=== PATIENT | female | born 1960 | race Caucasian/White ===

== ENCOUNTER 2020-02-20 17:12 | Emergency (ER) | payer MEDICARE, SELFPAY ==
[2020-02-20 17:51] VITALS: BP 144/90; PULSE 68; RESP 18; TEMP 36.8; O2SAT 95; BMI 33.8
--- NOTE | 2020-02-20 18:03 | ED_ITS ---
HPI - General Adult General: Chief complaint: General Medical Stated complaint: constipation/rectal presssure/pain Time Seen by Provider: 02/20/20 18:02 History of Present Illness: HPI narrative: Pt states she had been contipated for days and took a laxative and then she was able to go but whenever she strains something comes out of her rectum that is still attached and it hurts, she states she has to strain to urinate and she notices her rectoum come out then too. abd pain, no n/v/d Onset (ago): day(s) Location: abdomen Radiation: non-radiation Severity: moderate Quality: burning Pain Consistency: constant Relieving factors: none Exacerbating factors: none Associated symptoms: Deny chest pain, decreased appetite, dyspnea, fevers/chills, headache(s), nausea, rash, short of breath or vomiting Treatments prior to arrival: none Review of Systems General: Reports: 10 or more systems reviewed and unremarkable except in HPI and below Const: Denies: fever, chills or fatigue ENMT: Denies: throat pain Card: Denies: chest pain or swelling of feet/ankles Resp: Denies: shortness of breath or productive cough GI: Reports: constipation, rectal pain and rectal swelling; Denies: nausea, vomiting or diarrhea : Reports: difficulty urinating and urinary hesitancy Musc: Denies: back pain or extremity swelling Skin/Breast: Denies: rash Neuro: Denies: headache, numbness in extremities or weakness in extremities PFSH ED PFSH: Social History Smoking and tobacco status: current every day smoker cigarettes Packs smoked per day: 0.75 Years cigarettes smoked: 40 Physical Exam Const: COMMON NORMALS: no apparent distress and oriented x3 GENERAL APPEARANCE: cooperative; not in distress HENMT: COMMON NORMALS: normocephalic HEAD & SCALP: normal to inspection and normocephalic MOUTH: oral and palatal mucosa normal and lip normal THROAT: posterior oropharynx normal and tonsils normal Neck/C-Spine: COMMON NORMALS: full ROM, no lymphadenopathy, supple and no meningeal signs GENERAL: Yes normal visual inspection and Yes trachea midline Chest: COMMONS NORMALS: inspection of chest normal Resp: COMMON NORMALS: normal respiratory effort and clear to auscultation bilaterally EFFORT & INSPECTION: Yes able to speak in complete sentences and No respiratory distress AUSCULTATION: clear to auscultation bilaterally, no rales, no rhonchi and no wheezes Cardio: COMMON NORMALS: regular rate, regular rhythm, S1 normal heart sound, S2 normal heart sound and no murmurs RATE: regular rate RHYTHM: regular rhythm HEART SOUNDS: S1 normal and S2 normal PERIPHERAL PULSES: radial pulses present and dorsalis pedis pulses present GI: AUSCULTATION: Yes normoactive bowel sounds PALPATION: Yes tender Details: RLQ and other (supropubic) RECTAL EXAM: external hemorrhoid(s) (very small non thrombosed), No rectal prolapse and no fecal impaction : COMMON NORMALS: Yes no CVA tenderness BLADDER/KIDNEY EXAM: Yes no CVA tenderness Back/Pelvis: COMMON NORMALS: no CVA tenderness Extremity: COMMON NORMALS: normal to inspection, full ROM, normal capillary refill, no calf tenderness and no pedal edema Neuro: COMMON NORMALS: oriented x3, CN's II-XII intact bilaterally, moves all extremities and no focal motor deficits MENINGEAL SIGNS: Yes no meningeal signs Skin: COMMON NORMALS: no rashes or lesions noted GENERAL SKIN EXAM: no rashes or lesions noted Course Vital Signs: Vital signs: Vital Signs Temperature 98.3 F 02/20/20 17:51 Pulse Rate 69 02/20/20 19:29 Respiratory Rate 18 02/20/20 19:29 Blood Pressure 152/78 02/20/20 19:29 Pulse Oximetry 96 02/20/20 19:29 MDM - General Adult MDM Narrative: Medical decision making narrative: ct showed possible biliary sludge so I ordered us gallbladder which was neg, ast and alt are slightly elevated, She had no evidence of rectal prolapse by that is how it sounds by her history, I will refer her to general surgery as an outpt . I will send her home on colace. She is tolerating pos well here. Lab Data: Attestation: I reviewed the patient's lab results. Labs: Lab Results 02/20/20 02/20/20 02/20/20 Range/Units 19:05 19:37 19:37 WBC 9.1 (4.0-10.0) 10^3/ uL RBC 4.71 (4.1-5.3) 10^6/u L Hgb 15.0 (11.5-15.3) g/dL Hct 45.5 (37.0-47.0) % MCV 96.6 (81-99) fL MCH 31.8 (28.0-34.0) pg MCHC 33.0 (30.0-36.0) g/dL RDW 13.3 (12.1-15.1) % Plt Count 309 (130-400) 10^3/c mm MPV 10.2 (7.4-10.4) fL Neut % (Auto) 60.8 % Lymph % (Auto) 25.7 % [place] % (Auto) 11.3 % Eos % (Auto) 1.5 % Baso % (Auto) 0.5 % Neut # (Auto) 5.5 (1.8-7.7) 10^3/u L Lymph # (Auto) 2.3 (0.8-4.8) 10^3/u L [place] # (Auto) 1.0 H (0.2-0.9) 10^3/u L Eos # (Auto) 0.1 (0.0-0.8) 10^3/u L Baso # (Auto) 0.1 (0.0-0.1) 10^3/u L Nucleated RBC % (a uto) 0 % Nucleated RBCs # 0.0 /100WBC Sodium 135 L (136-145) mmol/L Potassium 3.7 (3.5-5.1) mmol/L Chloride 95 L (98-107) mmol/L Carbon Dioxide 29 (22-29) mmol/L Anion Gap 14.7 (5-19) BUN 7 (6-20) mg/dL Creatinine 1.0 H (0.5-0.9) mg/dL GFR Calculation 57.1 L (90-130) mL/min Glucose 86 (65-115) mg/dL Calculated Osmolal ity 275 L (285-295) mOsm/k g Calcium 9.1 (8.5-10.5) mg/dL Total Bilirubin 0.5 (0.15-1.2) mg/dL AST 84 H (0-32) U/L ALT 93 H (0-33) U/L Alkaline Phosphata se 90 (35-105) IU/L Total Protein 7.0 (6.6-8.7) g/dL Albumin 3.5 (3.5-5.2) g/dL Globulin 3.5 (1.3-4.6) g/dL Urine Color Straw (Yellow) Urine Appearance Clear (CLEAR) Urine pH 7 (5-7) Ur Specific Gravit y 1.000 L (1.005-1.030) Urine Protein Neg (Negative) Urine Glucose (UA) Norm (Normal) Urine Ketones Negative (Negative) Urine Blood Neg (Negative) Urine Nitrate Negative (Negative) Urine Bilirubin Neg (NEGATIVE) Urine Urobilinogen Norm (Negative) mg/dL Ur Leukocyte Dania ase Negative (Negative) Imaging Data^: CT Abd/Pel: Radiologist's impression: CT Scan Report Signed Patient: Tiarra Piper #: [id number] : 2Acct#:[id number] Age/Sex: 59 / FADM Date: 02/20/20 Loc: ERRoom/Bed: Attending Dr: Ordering Provider/Ordering MD: Maggy Acevedo DO Date of Service: 02/20/20 Procedure(s): CT abdomen pelvis w con* [id number] Accession Number(s): [id number] Report Number: [id number] PROCEDURE INFORMATION: Exam: CT Abdomen And Pelvis With Contrast Exam date and time: 02/20/2020 6:56 PM Age: 59 years old Clinical indication: Pain; Constipation; Other: Rectal; Prior surgery; Surgery type: RT hip; Additional info: Abd pain TECHNIQUE: Imaging protocol: Computed tomography of the abdomen and pelvis with intravenous contrast. Radiation optimization: All CT scans at this facility use at least one of these dose optimization techniques: automated exposure control; mA and/or kV adjustment per patient size (includes targeted exams where dose is matched to clinical indication); or iterative reconstruction. Contrast material: OMNI 300; Contrast volume: 95 ml; Contrast route: IV; COMPARISON: CT abdomen pelvis w con* [id number] 04/01/2019 2:00 PM RADIATION DOSE METRICS: Total DLP: 1315.97 mGy-cm FINDINGS: Liver: There is mild enlargement of the liver. . Liver measures 19 cm in height. There is no focal abnormality within the liver. Gallbladder and bile ducts: There is increased density in the dependent portions of the gallbladder which could represent gallbladder sludge or thick mild. Correlation with clinical findings and perhaps ultrasound is suggested. There is no gallbladder wall thickening or pericholecystic fluid . Pancreas: Prominent mid body of the pancreas is not significantly changed from 04/01/2019. No definite pancreatic mass is identified. Spleen: The spleen is normal. Adrenals: The adrenal glands are normal. Kidneys and ureters: The kidneys are normal. There is no evidence of hydronephrosis. There is no evidence of renal or ureteral calcifications. Stomach and bowel: Moderate diverticulosis is present in the distal colon. There is no evidence of colitis/diverticulitis. Appendix: A normal appendix is identified. Intraperitoneal space: Unremarkable. No free air. No significant fluid collection. Vasculature: Unremarkable. No abdominal aortic aneurysm. Lymph nodes: Unremarkable. No enlarged lymph nodes. Bladder: Unremarkable as visualized. Reproductive: Unremarkable as visualized. Bones/joints: There is right hip replacement. The metallic prosthesis causes some streak artifact in the pelvis. There is some cystic change in the left femoral neck and there is some sclerosis and remodeling of the left femoral head suggestive of osteonecrosis. This has progressed compared with 04/01/2019. The lumbar spine demonstrates marked degenerative changes at multiple levels. There is moderate lumbar scoliosis concave to the right. Soft tissues: Unremarkable. CT/CT abdomen pelvis w con* [id number] IMPRESSION: 1. Mild hepatomegaly 2. Avascular necrosis of the left femoral head. 3. Increased density within the gallbladder which could represent sludge. Correlation with clinical findings and perhaps ultrasound is suggested 4. Mildly prominent pancreas body not significantly changed Radiation Dose CTDIVOL = (mGy): DLP = 1315.97 (mGy-cm) Dictated By:James Grimes Signed By:Geovany Grimesigned Date/Time:02/20/201952 Discharge Plan Discharge Patient Disposition: Home, Self-Care Clinical Impression: Partial rectal prolapse, External hemorrhoid Condition: Stable Prescriptions: New Colace 100 mg capsule 100 mg PO BID Qty: 60 RF: 0 No Action Xarelto 20 mg tablet 20 mg PO DAILY 90 Days Qty: 90 RF: 3 amiodarone 200 mg tablet 200 mg PO DAILY Qty: 90 RF: 3 albuterol sulfate 90 mcg/actuation HFA aerosol inhaler 2 puff INHALATION Q6H PRN (Reason: shortness of breath or wheezing) Qty: 13.4 RF: 2 digoxin 125 mcg (0.125 mg) tablet 125 mcg PO DAILY 90 Days Qty: 90 RF: 3 furosemide 40 mg Tablet 40 mg PO BID RF: 0 spironolactone 25 mg Tablet 25 mg PO DAILY RF: 0 metoprolol tartrate 25 mg Tablet 25 mg PO BID RF: 0 Mucinex D 400 MG 400 mg PO BID RF: 0 hydrocodone-acetaminophen 10 MG 10 mg PO DAILY PRN (Reason: Breakthrough Pain) RF: 0 Tylenol Extra Strength 500 mg Tablet 500 mg PO Q6H PRN (Reason: Pain) RF: 0 Discharge Orders: Discharge Order (Routine); Ordered 02/20/20 Ordered By: Maggy Acevedo Referrals: Be Conley MD [Physician] - 1 week Filemon Sharma [Emergency Nurse] - 1-3 days Discharge Diet: Advance as tolerated and GI Soft Discharge Activity: Resume usual activity Patient Instructions: Hemorrhoids (ED) Activity Restrictions/Additional Instructions: no heavy lifting until cleared, no straining while on toilet, f/u with pcp 1-2 days, return if worse, sny problem, any change Discharge Date/Time: 02/20/20 22:23 Coding Level of Care Code ED Pipe Bending Machine Operator for Chg Fwd Exam Comprehensive
--- NOTE | 2020-02-20 18:53 | CTR_ITS ---
PROCEDURE INFORMATION: Exam: CT Abdomen And Pelvis With Contrast Exam date and time: 02/20/2020 6:56 PM Age: 59 years old Clinical indication: Pain; Constipation; Other: Rectal; Prior surgery; Surgery type: RT hip; Additional info: Abd pain TECHNIQUE: Imaging protocol: Computed tomography of the abdomen and pelvis with intravenous contrast. Radiation optimization: All CT scans at this facility use at least one of these dose optimization techniques: automated exposure control; mA and/or kV adjustment per patient size (includes targeted exams where dose is matched to clinical indication); or iterative reconstruction. Contrast material: OMNI 300; Contrast volume: 95 ml; Contrast route: IV; COMPARISON: CT abdomen pelvis w con* [id number] 04/01/2019 2:00 PM RADIATION DOSE METRICS: Total DLP: 1315.97 mGy-cm FINDINGS: Liver: There is mild enlargement of the liver. . Liver measures 19 cm in height. There is no focal abnormality within the liver. Gallbladder and bile ducts: There is increased density in the dependent portions of the gallbladder which could represent gallbladder sludge or thick mild. Correlation with clinical findings and perhaps ultrasound is suggested. There is no gallbladder wall thickening or pericholecystic fluid . Pancreas: Prominent mid body of the pancreas is not significantly changed from 04/01/2019. No definite pancreatic mass is identified. Spleen: The spleen is normal. Adrenals: The adrenal glands are normal. Kidneys and ureters: The kidneys are normal. There is no evidence of hydronephrosis. There is no evidence of renal or ureteral calcifications. Stomach and bowel: Moderate diverticulosis is present in the distal colon. There is no evidence of colitis/diverticulitis. Appendix: A normal appendix is identified. Intraperitoneal space: Unremarkable. No free air. No significant fluid collection. Vasculature: Unremarkable. No abdominal aortic aneurysm. Lymph nodes: Unremarkable. No enlarged lymph nodes. Bladder: Unremarkable as visualized. Reproductive: Unremarkable as visualized. Bones/joints: There is right hip replacement. The metallic prosthesis causes some streak artifact in the pelvis. There is some cystic change in the left femoral neck and there is some sclerosis and remodeling of the left femoral head suggestive of osteonecrosis. This has progressed compared with 04/01/2019. The lumbar spine demonstrates marked degenerative changes at multiple levels. There is moderate lumbar scoliosis concave to the right. Soft tissues: Unremarkable. CT/CT abdomen pelvis w con* [id number] IMPRESSION: 1. Mild hepatomegaly 2. Avascular necrosis of the left femoral head. 3. Increased density within the gallbladder which could represent sludge. Correlation with clinical findings and perhaps ultrasound is suggested 4. Mildly prominent pancreas body not significantly changed Radiation Dose CTDIVOL = (mGy): DLP = 1315.97 (mGy-cm)
[2020-02-20 19:15] LABS: Add Urine Microscopic? NO
[2020-02-20] MEDS: sodium chloride 0.9% 1,000 ML 999 ML IV (19:25)
[2020-02-20 19:29] VITALS: BP 152/78; PULSE 69; RESP 18; O2SAT 96
[2020-02-20 19:40] LABS: Bilirubin Urine Neg (NEGATIVE); Blood Urine Neg (Negative); Glucose Urine UA Norm (Normal); Ketones Urine Negative (Negative); Leukocyte Esterase Urine Negative (Negative); Nitrate Urine Negative (Negative); Protein Urine Neg (Negative); Urine Appearance Clear (CLEAR); Urine Color Straw (Yellow); Urobilinogen Urine Norm (Negative); pH Urine 7 (5-7)
[2020-02-20 19:53] LABS: Basophils # 0.1 10^3/uL (0.0-0.1); Basophils % 0.5 %; Eosinophils # 0.1 10^3/uL (0.0-0.8); Eosinophils % 1.5 %; Hematocrit 45.5 % (37.0-47.0); Lymphocytes # 2.3 10^3/uL (0.8-4.8); Lymphocytes % 25.7 %; Mean Corpuscular Hemoglobin 31.8 pg (28.0-34.0); Mean Corpuscular Volume 96.6 fL (81-99); Mean Platelet Volume 10.2 fL (7.4-10.4); Monocytes % 11.3 %; Neutrophils # 5.5 10^3/uL (1.8-7.7); Neutrophils % 60.8 %; Nucleated Red Blood Cells % 0 %; Platelet Count 309 10^3/cmm (130-400); Red Blood Count 4.71 10^6/uL (4.1-5.3); Red Cell Distribution Width 13.3 % (12.1-15.1); White Blood Count 9.1 10^3/uL (4.0-10.0)
[2020-02-20 20:21] LABS: Alanine Aminotransferase 93 U/L (0-33); Albumin Level 3.5 g/dL (3.5-5.2); Alkaline Phosphatase 90 IU/L (35-105); Anion Gap 14.7 (5-19); Aspartate Amino Transferase 84 U/L (0-32); Blood Urea Nitrogen 7 mg/dL (6-20); Calcium 9.1 mg/dL (8.5-10.5); Carbon Dioxide 29 mmol/L (22-29); Chloride 95 mmol/L (98-107); Globulin 3.5 g/dL (1.3-4.6); Glomerular Filtration Rate 57.1 mL/min (90-130); Glucose 86 mg/dL (65-115); Osmolality Calculated 275 mOsm/kg (285-295); Potassium 3.7 mmol/L (3.5-5.1); Sodium 135 mmol/L (136-145); Total Bilirubin 0.5 mg/dL (0.15-1.2)
--- NOTE | 2020-02-20 20:25 | US_ITS ---
WS: [id number] RIGHT UPPER QUADRANT ULTRASOUND HISTORY: Abnormal pancreas. Abnormal gallbladder. COMPARISON: 02/20/2020 CT. Prior ultrasound 03/15/2019. Liver: 19.3 cm in length. Liver slightly enlarged. No mass or bile duct dilatation. Gallbladder: Normally distended gallbladder with no stones or wall thickening. CBD: 0.4 cm Pancreas: Again noted is mild fullness in the mid body which is unchanged. Right kidney: 11.2 cm in length. Normal echogenicity with no mass or hydronephrosis. Aorta and IVC: Unremarkable. No ascites. US/US gall bladder [id number] IMPRESSION: 1. Normal gallbladder. 2. Mild hepatomegaly. 3. Mild fullness in the pancreatic mid body. Not changed since 04/01/2019.
--- NOTE | 2020-02-21 10:59 | DCPLANNER ---
manager application development had message to schedule a follow up appointment for patient with general surgery. manager application development called [facility], spoke with Cathleen, gave clinic patients information. manager application development was told that patients information would be given to Courtney and an appointment would be scheduled. Clinic will call patient with appointment information.
--- NOTE | 2020-02-27 13:36 | DCPLANNER ---
Patient has a follow up appointment scheduled for Friday, February 28, [address] at 11:[address] Conley. Clinic will call patient with appointment information.
--- NOTE | 2020-03-11 15:03 | DCPLANNER ---
Patients appointment scheduled for 02.28.20 with [facility], was cancelled.
== END 2020-02-20 22:23 | disposition home or self-care (01) ==
PROVIDERS: Emergency Provider Emergency Medicine
DX: K62.3 Rectal prolapse (principal); K64.4 Residual hemorrhoidal skin tags; F17.210 Nicotine dependence, cigarettes, uncomplicated
CPT/HCPCS: 12345; 36415; 74177; 76705; 80053; 81003; 85025; 96360; 96361; 99283; J7030; Q9967

== ENCOUNTER 2020-02-23 19:13 | Emergency (ER) | payer MEDICARE, SELFPAY ==
[2020-02-23 19:18] VITALS: BP 150/88; PULSE 94; RESP 16; TEMP 36.9; O2SAT 96; BMI 33.8
--- NOTE | 2020-02-23 19:37 | ED_ITS ---
HPI - General Adult General: Chief complaint: General Medical Stated complaint: Constipation/Rectal Bleed Time Seen by Provider: 02/23/20 19:35 Source: patient and EMS Mode of arrival: EMS Limitations: no limitations History of Present Illness: HPI narrative: 59-year-old female states she has had constipation for over a week. She states she has been trying stool softeners along with MiraLAX with no relief. She states she try to give her self an enema today and had bleeding which concerned her. Patient is since stopped bleeding but still has not had a bowel movement. States she has pressure in the rectum and pain in her rectum. Associated symptoms: Deny chest pain, dyspnea, headache(s) or rash Review of Systems Const: Denies: fever, chills, body aches or change in appetite Eyes: Denies: blurry vision or eye discomfort ENMT: Denies: throat pain or dental pain Card: Denies: chest pain Resp: Denies: shortness of breath GI: Reports: constipation : Denies: painful urination Musc: Denies: neck pain or back pain Skin/Breast: Denies: rash Neuro: Denies: headache Psych: Denies: depression [place]/Lymph: Denies: easy bruising All/Imm: Denies: hives PFSH ED PFSH: Social History Smoking and tobacco status: current every day smoker cigarettes Packs smoked per day: 0.75 Years cigarettes smoked: 40 Physical Exam Const: COMMON NORMALS: no apparent distress, oriented x3 and healthy appearing HENMT: COMMON NORMALS: normocephalic and head/scalp atraumatic HEAD & SCALP: normocephalic and atraumatic Eye: COMMON NORMALS: PERRL and EOMs intact bilaterally PUPIL: Yes PERRL Neck/C-Spine: COMMON NORMALS: full ROM and supple Chest: COMMONS NORMALS: inspection of chest normal and palpation of chest normal Resp: COMMON NORMALS: normal respiratory effort, no retractions, no use of accessory muscles and clear to auscultation bilaterally AUSCULTATION: clear to auscultation bilaterally Cardio: COMMON NORMALS: regular rate, regular rhythm and no murmurs RATE: regular rate RHYTHM: regular rhythm GI: COMMON NORMALS: normal to inspection, nondistended, normoactive bowel sounds, soft to palpation, non-tender and no masses PALPATION: Yes soft OTHER: Rectal exam shows no blood patient does have a impaction that is too deep to remove Extremity: COMMON NORMALS: normal to inspection and full ROM Neuro: COMMON NORMALS: oriented x3, moves all extremities and no focal motor deficits Psych: COMMON NORMALS: mental status grossly normal, thought process normal and cooperative THOUGHT PROCESS: normal thought process Skin: COMMON NORMALS: no rashes or lesions noted and no wounds GENERAL SKIN EXAM: no rashes or lesions noted Course Vital Signs: Vital signs: Vital Signs Temperature 98.4 F 02/23/20 19:18 Pulse Rate 94 02/23/20 19:18 Respiratory Rate 16 02/23/20 19:18 Blood Pressure 150/88 02/23/20 19:18 Pulse Oximetry 96 02/23/20 19:18 MDM - General Adult MDM Narrative: Medical decision making narrative: Patient presents with constipation. She has no GI bleeding here and likely had a small fissure during her enema. Patient given lactulose here and is to take MiraLAX at home. Manual disimpaction was performed and removed most of the constipation. Patient has no signs obstruction. Patient is stable for discharge and return if worsening. Lab Data: Labs: Lab Results 02/23/20 02/23/20 02/23/20 Range/Units 19:45 19:45 19:45 WBC 10.0 (4.0-10.0) 10^3/ uL RBC 4.78 (4.1-5.3) 10^6/u L Hgb 15.3 (11.5-15.3) g/dL Hct 46.9 (37.0-47.0) % MCV 98.1 (81-99) fL MCH 32.0 (28.0-34.0) pg MCHC 32.6 (30.0-36.0) g/dL RDW 13.5 (12.1-15.1) % Plt Count 291 (130-400) 10^3/c mm MPV 10.2 (7.4-10.4) fL Neut % (Auto) 70.9 % Lymph % (Auto) 15.8 % [place] % (Auto) 9.8 % Eos % (Auto) 2.7 % Baso % (Auto) 0.6 % Neut # (Auto) 7.1 (1.8-7.7) 10^3/u L Lymph # (Auto) 1.6 (0.8-4.8) 10^3/u L [place] # (Auto) 1.0 H (0.2-0.9) 10^3/u L Eos # (Auto) 0.3 (0.0-0.8) 10^3/u L Baso # (Auto) 0.1 (0.0-0.1) 10^3/u L Nucleated RBC % (a uto) 0 % Nucleated RBCs # 0.0 /100WBC PT 21.50 H (10.5-13.3) SECO NDS INR 1.79 H (0.8-1.2) Sodium 137 (136-145) mmol/L Potassium 3.7 (3.5-5.1) mmol/L Chloride 97 L (98-107) mmol/L Carbon Dioxide 26 (22-29) mmol/L Anion Gap 17.7 (5-19) BUN 7 (6-20) mg/dL Creatinine 1.1 H (0.5-0.9) mg/dL GFR Calculation 51.2 L (90-130) mL/min Glucose 99 (65-115) mg/dL Calculated Osmolal ity 280 L (285-295) mOsm/k g Calcium 9.1 (8.5-10.5) mg/dL Imaging Data^: KUB: Attestation: I personally reviewed and interpreted this imaging study as follows: My impression: constipated Discharge Plan Discharge Patient Disposition: Home, Self-Care Clinical Impression: Constipation Qualifiers: Constipation type: unspecified constipation type Qualified Code(s): K59.00 - Constipation, unspecified Condition: Stable Prescriptions: New Miralax 17 gram/dose powder 17 gm PO DAILY PRN (Reason: constipation) Qty: 119 RF: 0 No Action Xarelto 20 mg tablet 20 mg PO DAILY 90 Days Qty: 90 RF: 3 amiodarone 200 mg tablet 200 mg PO DAILY Qty: 90 RF: 3 albuterol sulfate 90 mcg/actuation HFA aerosol inhaler 2 puff INHALATION Q6H PRN (Reason: shortness of breath or wheezing) Qty: 13.4 RF: 2 digoxin 125 mcg (0.125 mg) tablet 125 mcg PO DAILY 90 Days Qty: 90 RF: 3 furosemide 40 mg Tablet 40 mg PO BID RF: 0 spironolactone 25 mg Tablet 25 mg PO DAILY RF: 0 metoprolol tartrate 25 mg Tablet 25 mg PO BID RF: 0 Mucinex D 400 MG 400 mg PO BID RF: 0 hydrocodone-acetaminophen 10 MG 10 mg PO DAILY PRN (Reason: Breakthrough Pain) RF: 0 acetaminophen [Tylenol Extra Strength] 500 mg Tablet 500 mg PO Q6H PRN (Reason: Pain) RF: 0 docusate sodium [Colace] 100 mg capsule 100 mg PO BID Qty: 60 RF: 0 Discharge Orders: Discharge Order (Routine); Ordered 02/23/20 Ordered By: Anni Larsen Discharge Diet: Advance as tolerated Discharge Activity: Resume usual activity Patient Instructions: Constipation (ED) Discharge Date/Time: 02/23/20 23:13 Coding Level of Care Code ED Fast Food Restaurant Manager for Carol Fwjeremy Exam Comprehensive
[2020-02-23] MEDS: lactulose oral liq 20 gm/30 mL UDC 30 GM PO (19:49)
[2020-02-23 19:51] LABS: Basophils # 0.1 10^3/uL (0.0-0.1); Basophils % 0.6 %; Eosinophils # 0.3 10^3/uL (0.0-0.8); Eosinophils % 2.7 %; Hematocrit 46.9 % (37.0-47.0); Hemoglobin 15.3 g/dL (11.5-15.3); Lymphocytes # 1.6 10^3/uL (0.8-4.8); Lymphocytes % 15.8 %; Mean Corpuscular HGB Conc 32.6 g/dL (30.0-36.0); Mean Corpuscular Volume 98.1 fL (81-99); Mean Platelet Volume 10.2 fL (7.4-10.4); Monocytes % 9.8 %; Neutrophils # 7.1 10^3/uL (1.8-7.7); Neutrophils % 70.9 %; Nucleated Red Blood Cells % 0 %; Platelet Count 291 10^3/cmm (130-400); Red Blood Count 4.78 10^6/uL (4.1-5.3); Red Cell Distribution Width 13.5 % (12.1-15.1)
--- NOTE | 2020-02-23 19:58 | XR_ITS ---
WS: [id number] XR KUB [id number] REASON FOR EXAM: constipation FINDINGS: Scattered gas and fecal stasis throughout the colon are noted. Prosthesis replaces the righ t hip joint. There is scoliotic curve convex to the left. XR/XR KUB [id number] IMPRESSION: Nonspecific gas and fecal stasis.
[2020-02-23 20:00] LABS: INR 1.79 (0.8-1.2)
--- NOTE | 2020-02-23 20:04 | PC.NURSE ---
Pt able to tolerate PO meds without difficulties
[2020-02-23 20:09] LABS: Anion Gap 17.7 (5-19); Blood Urea Nitrogen 7 mg/dL (6-20); Calcium 9.1 mg/dL (8.5-10.5); Carbon Dioxide 26 mmol/L (22-29); Chloride 97 mmol/L (98-107); Glomerular Filtration Rate 51.2 mL/min (90-130); Glucose 99 mg/dL (65-115); Osmolality Calculated 280 mOsm/kg (285-295); Potassium 3.7 mmol/L (3.5-5.1); Sodium 137 mmol/L (136-145)
[2020-02-23] MEDS: polyethylene glycol 3350 Pkt 17 gm PO (20:57)
[2020-02-23 22:25] VITALS: BP 134/72; PULSE 102; RESP 18; O2SAT 97
--- NOTE | 2020-02-23 23:12 | PC.NURSE ---
I agree with this assessment
== END 2020-02-23 23:13 | disposition home or self-care (01) ==
PROVIDERS: Emergency Provider Emergency Medicine
DX: K59.00 Constipation, unspecified (principal); F17.210 Nicotine dependence, cigarettes, uncomplicated
CPT/HCPCS: 12345; 36415; 74018; 80048; 85025; 85610; 99281; 99283

== ENCOUNTER 2020-04-26 23:07 | Emergency (ER) | payer MEDICARE, SELFPAY ==
[2020-04-26 23:12] VITALS: BP 113/80; PULSE 122; RESP 19; TEMP 36.7; O2SAT 95; BMI 33.0
--- NOTE | 2020-04-26 23:41 | XR_ITS ---
WS: [id number] LEFT HIP HISTORY: pain COMPARISON: 08/28/2019 LEFT hip: No acute fracture or dislocation. Mild narrowing and sclerotic changes involving the LEFT h ip joint. Irregularity along the cortical surface of the hip and acetabulum. XR/XR hip LT 2-3V wo/w pel* [id number] IMPRESSION: 1. No hip fracture. 2. Mild osteoarthritis LEFT hip.
--- NOTE | 2020-04-26 23:48 | W.ED.GENADLT ---
HPI - General Adult General: Chief complaint: General Medical Stated complaint: hip pain Time Seen by Provider: 04/26/20 23:21 History of Present Illness: HPI narrative: Patient complaining of worsening left hip pain is been really bad this past week hurts to ambulate now pain extends down her left thigh is waiting for hip replacement surgery complaint: Left hip pain Onset (ago): week(s) Location: left and upper extremity Radiation: extremity Severity: severe Severity scale (1-10): 7 Quality: aching Pain Consistency: constant Relieving factors: rest Exacerbating factors: movement Associated symptoms: Reports no associated symptoms; Deny chest pain, dyspnea, headache(s), nausea, rash or vomiting Treatments prior to arrival: other (Meds) Review of Systems Const: Denies: fever(s), chills or body aches Eyes: Denies: change in vision or blurry vision ENMT: Denies: throat pain or nasal congestion Card: Denies: chest pain or dyspnea on exertion Resp: Denies: dyspnea, productive cough or non-productive cough GI: Denies: abdominal pain, nausea or vomiting Musc: Reports: joint pain and limited range of motion; Denies: extremity pain Skin/Breast: Denies: rash Neuro: Denies: headache(s) Psych: Denies: anxiety or depression Kwabena/Lymph: Denies: easy bruising PFSH ED PFSH: Medical History (Updated 04/22/20 @ 15:54 by Noemi Osman MD) Anticoagulation adequate with anticoagulant therapy Xarelto Atrial fibrillation and flutter Congestive heart failure COPD (chronic obstructive pulmonary disease) Tobacco abuse Social History Smoking and tobacco status: current every day smoker cigarettes Years cigarettes smoked: 40 Marital status: / Physical Exam Const: COMMON NORMALS: no acute distress, average body habitus and patient oriented x3 HENMT: COMMON NORMALS: normocephalic HEAD & SCALP: normal to inspection and normocephalic FACE & SINUS: normal facial exam Eye: COMMON NORMALS: conjunctivae normal GENERAL EYE: appearance normal, both eyes and all related structures CONJUNCTIVA: Yes conjunctivae normal Neck/C-Spine: COMMON NORMALS: no JVD Chest: COMMONS NORMALS: normal inspection of the chest Resp: COMMON NORMALS: normal respiratory effort and clear to auscultation bilaterally AUSCULTATION: clear to auscultation bilaterally Cardio: COMMON NORMALS: no JVD, regular rate and regular rhythm RATE: regular rate RHYTHM: regular rhythm GI: COMMON NORMALS: Normal to inspection, nondistended, normoactive bowel sounds present Extremity: COMMON NORMALS: normal to inspection NARRATIVE EXTREMITY EXAM: Pain left hip with range of motion and palpation Neuro: COMMON NORMALS: patient oriented x3 Course Vital Signs: Vital signs: Vital Signs Temperature 98.0 F 04/26/20 23:12 Pulse Rate 122 H 04/26/20 23:12 Respiratory Rate 19 H 04/26/20 23:12 Blood Pressure 113/80 04/26/20 23:12 Pulse Oximetry 95 04/26/20 23:12 Discharge Plan Discharge Prescriptions: No Action albuterol sulfate 90 mcg/actuation HFA aerosol inhaler 2 puff INHALATION Q6H PRN (Reason: shortness of breath or wheezing) Qty: 13.4 RF: 11 amiodarone 200 mg tablet 200 mg PO DAILY Qty: 90 RF: 3 digoxin 125 mcg (0.125 mg) tablet 125 mcg PO DAILY 90 Days Qty: 90 RF: 3 furosemide 40 mg tablet 40 mg PO BID Qty: 180 RF: 3 metoprolol tartrate 25 mg tablet 25 mg PO BID Qty: 180 RF: 3 Xarelto 20 mg tablet 20 mg PO DAILY 90 Days Qty: 90 RF: 3 spironolactone 25 mg tablet 25 mg PO DAILY 90 Days Qty: 90 RF: 3 Miralax 17 gram/dose powder 17 gm PO DAILY PRN (Reason: constipation) Qty: 119 RF: 0 Mucinex D 400 MG 400 mg PO BID RF: 0 hydrocodone-acetaminophen 10 MG 10 mg PO DAILY PRN (Reason: Breakthrough Pain) RF: 0 acetaminophen [Tylenol Extra Strength] 500 mg Tablet 500 mg PO Q6H PRN (Reason: Pain) RF: 0 docusate sodium [Colace] 100 mg capsule 100 mg PO BID Qty: 60 RF: 0 Coding Level of Care Code ED Sonar Subsystem Equipment Operator for Chg Fwd Exam Comprehensive
[2020-04-27 00:01] LABS: Basophils # 0.1 10^3/uL (0.0-0.1); Basophils % 0.5 %; Eosinophils # 0.1 10^3/uL (0.0-0.8); Eosinophils % 0.5 %; Hematocrit 43.2 % (37.0-47.0); Hemoglobin 14.5 g/dL (11.5-15.3); Lymphocytes # 1.9 10^3/uL (0.8-4.8); Lymphocytes % 14.9 %; Mean Corpuscular HGB Conc 33.6 g/dL (30.0-36.0); Mean Corpuscular Hemoglobin 32.2 pg (28.0-34.0); Mean Corpuscular Volume 95.8 fL (81-99); Mean Platelet Volume 9.7 fL (7.4-10.4); Monocytes # 1.4 10^3/uL (0.2-0.9); Monocytes % 11.1 %; Neutrophils # 9.4 10^3/uL (1.8-7.7); Neutrophils % 72.8 %; Nucleated Red Blood Cells % 0 %; Platelet Count 333 10^3/cmm (130-400); Red Blood Count 4.51 10^6/uL (4.1-5.3); Red Cell Distribution Width 14.5 % (12.1-15.1); White Blood Count 12.9 10^3/uL (4.0-10.0)
[2020-04-27] MEDS: methylPREDNISolone (DEPO) 80 MG/ML INJ 1 mL IM (00:09)
[2020-04-27 00:17] LABS: C Reactive Protein 51.1 mg/L (0.0-4.9)
[2020-04-27 00:18] VITALS: RESP 20
[2020-04-27] MEDS: ondansetron 4 MG Tablet 8 MG PO (00:18)
[2020-04-27] MEDS: morphine 4 mg/mL SDV 1 mL IM (00:18)
[2020-04-27 00:40] LABS: Erythrocyte Sedimentation Rate 37 mm/hr (0-15)
[2020-04-27 01:19] VITALS: BP 128/60; PULSE 93; RESP 19; O2SAT 95
== END 2020-04-27 01:23 | disposition home or self-care (01) ==
PROVIDERS: Emergency Provider Nurse Practitioner Family; PCP Family Medicine
DX: M25.552 Pain in left hip (principal); I48.91 Unspecified atrial fibrillation; I50.9 Heart failure, unspecified; J44.9 Chronic obstructive pulmonary disease, unspecified; F17.210 Nicotine dependence, cigarettes, uncomplicated
CPT/HCPCS: 12345; 73502; 85025; 85651; 86140; 96372; 99281; 99283; J1040; J2270; Q0162

== ENCOUNTER 2020-05-12 20:00 | Outpatient (CLI) | payer MEDICARE, SELFPAY | END 2020-05-12 20:01 | disposition home or self-care (01) | LOC: SLEEP 05-13 09:04 | PROVIDERS: PCP Family Medicine; Visit Provider Family Medicine | DX: G47.33 Obstructive sleep apnea (adult) (pediatric) (principal) | CPT/HCPCS: 95811 ==

== ENCOUNTER 2020-10-03 16:02 | Emergency (ER) | payer MEDICARE, SELFPAY ==
[2020-10-03 16:19] VITALS: BP 142/88; PULSE 73; RESP 14; TEMP 36.2; O2SAT 97; BMI 31.3
--- NOTE | 2020-10-03 16:24 | ED_ITS ---
HPI - Back Pain/Injury General: Chief Complaint: Back Pain/Injury Stated Complaint: SEVERE R UPPER BACK PAIN Time Seen by Provider: 10/03/20 16:19 Source: patient Mode of arrival: ambulatory Limitations: no limitations History of Present Illness: HPI Narrative: 60-year-old female states she has been having right upper back pain over the last 4 days. States it is a very sharp pain right over her rhomboid muscle. States it is much worse with deep breaths and anytime she moves her right arm. States been improved with Tylenol she took Tylenol before arrival and her pain currently is a 3 out of 10. Denies any cough or fever. Denies any chest pain. Associated symptoms: Deny abdominal pain, chills, dysuria, fever(s), nausea or vomiting Review of Systems Const: Denies: fever(s), chills, body aches or change in appetite Eyes: Denies: blurry vision or eye discomfort ENMT: Denies: throat pain or dental pain Card: Denies: chest pain Resp: Denies: dyspnea GI: Denies: abdominal pain, nausea, vomiting or diarrhea : Denies: dysuria Musc: Reports: back pain; Denies: neck pain Skin/Breast: Denies: rash Neuro: Denies: headache(s) Psych: Denies: depression Kwabena/Lymph: Denies: easy bruising All/Imm: Denies: urticaria PFSH ED PFSH: Medical History Anticoagulation adequate with anticoagulant therapy Xarelto Atrial fibrillation and flutter Congestive heart failure COPD (chronic obstructive pulmonary disease) Tobacco abuse Surgical History History of arthroplasty of right hip Social History Smoking and tobacco status: current every day smoker cigarettes Packs smoked per day: 0.5 Years cigarettes smoked: 40 Second hand smoke exposure: No Alcohol intake: never Lives independently: Yes Marital status: / Current occupational status: disabled History of recent travel: No Current gender identity: Female Physical Exam Const: COMMON NORMALS: no acute distress, patient oriented x3 and healthy appearing HENMT: COMMON NORMALS: normocephalic and atraumatic HEAD & SCALP: normocephalic and atraumatic Eye: COMMON NORMALS: Equal, round and reactive pupils present and EOMs intact bilaterally PUPIL: Yes Equal, round and reactive pupils present Neck/C-Spine: COMMON NORMALS: full ROM and supple Chest: COMMONS NORMALS: normal inspection of the chest and normal palpation of entire chest wall Resp: COMMON NORMALS: normal respiratory effort, No retractions, No use of accessory muscles and clear to auscultation bilaterally AUSCULTATION: clear to auscultation bilaterally Cardio: COMMON NORMALS: regular rate, regular rhythm and No murmurs present (Cardio) RATE: regular rate RHYTHM: regular rhythm GI: COMMON NORMALS: Normal to inspection, nondistended, normoactive bowel sounds present, Soft to palpation, non-tender and no masses PALPATION: Yes Soft to palpation Back/Pelvis: OTHER: Tender over right rhomboid muscle. No midline back tenderness Extremity: COMMON NORMALS: normal to inspection and full ROM Neuro: COMMON NORMALS: patient oriented x3, moves all extremities and no focal motor deficits Psych: COMMON NORMALS: mental status grossly normal, Normal thought process present and cooperative THOUGHT PROCESS: Normal thought process present Skin: COMMON NORMALS: no rashes or lesions noted and no wounds GENERAL SKIN EXAM: no rashes or lesions noted Course Vital Signs: Vital signs: Vital Signs Temperature 97.2 F L 10/03/20 16:19 Pulse Rate 73 10/03/20 16:19 Respiratory Rate 14 10/03/20 16:19 Blood Pressure 142/88 10/03/20 16:19 Pulse Oximetry 97 10/03/20 16:19 MDM - Back Pain/Injury MDM Narrative: Medical decision making narrative: Demetria presents here with back pain. She is point tender over the rhomboid muscle and likely has a rhomboid strain. She has no midline tenderness and x-ray of her chest is normal with no signs of pneumonia. She is stable for discharge will place her on muscle relaxants she is to follow-up with her PCP and return if worsening. She understands and agrees to plan. Discharge Plan Discharge Patient Disposition: Home Clinical Impression: Thoracic back pain Qualifiers: Chronicity: acute Back pain laterality: right Qualified Code(s): M54.6 - Pain in thoracic spine Condition: Stable Prescriptions: New methocarbamol [Robaxin-750] 750 mg tablet 750 mg PO Q6H Qty: 30 RF: 0 No Action albuterol sulfate 90 mcg/actuation HFA aerosol inhaler 2 puff INHALATION Q6H PRN (Reason: shortness of breath or wheezing) Qty: 13.4 RF: 11 amiodarone 200 mg tablet 200 mg PO DAILY Qty: 90 RF: 3 digoxin 125 mcg (0.125 mg) tablet 125 mcg PO DAILY 90 Days Qty: 90 RF: 3 furosemide 40 mg tablet 40 mg PO BID Qty: 180 RF: 3 Xarelto 20 mg tablet 20 mg PO DAILY 90 Days Qty: 90 RF: 3 spironolactone 25 mg tablet 25 mg PO DAILY 90 Days Qty: 90 RF: 3 hydrocodone-acetaminophen 10-325 mg tablet 1 tab PO TID PRN (Reason: pain) 10 Days Qty: 30 RF: 0 sulfamethoxazole-trimethoprim [Bactrim DS] 800-160 mg tablet 1 tab PO BID Qty: 20 RF: 0 metoprolol tartrate 50 mg tablet See Rx Instructions .ROUTE .COMPLEX Qty: 90 RF: 3 Miralax 17 gram/dose powder 17 gm PO DAILY PRN (Reason: constipation) Qty: 119 RF: 0 Mucinex D 400 MG 400 mg PO BID RF: 0 acetaminophen [Tylenol Extra Strength] 500 mg Tablet 500 mg PO Q6H PRN (Reason: Pain) RF: 0 docusate sodium [Colace] 100 mg capsule 100 mg PO BID Qty: 60 RF: 0 Discharge Orders: Discharge ED (Routine); Ordered 10/03/20 Ordered By: Anni Larsen Referrals: Noemi Osman MD [Primary Care Provider] - 1-3 days Discharge Diet: Advance as tolerated Discharge Activity: Resume usual activity Patient Instructions: Back Pain (ED) Coding Level of Care Code ED Global Security Architect for Chg Fwd Exam Comprehensive
--- NOTE | 2020-10-03 16:24 | XRR_ITS ---
PROCEDURE INFORMATION: Exam: XR Chest, 1 View Exam date and time: 10/03/2020 4:24 PM Age: 60 years old Clinical indication: Chest pain TECHNIQUE: Imaging protocol: XR of the chest Views: 1 view. COMPARISON: CR Chest 2 views* [id number] 07/16/2018 2:47 PM FINDINGS: Lungs: There is scarring at the left lung base. Pleural space: Unremarkable. No pleural effusion. No pneumothorax. Heart/Mediastinum: Unremarkable. No cardiomegaly. Bones/joints: Unremarkable. Soft tissues: COPD morphology of the chest. XR/XR chest 1V portable [id number] IMPRESSION: COPD morphology of the chest. No evidence for acute cardiopulmonary disease.
[2020-10-03 17:29] VITALS: BP 104/61; PULSE 71; O2SAT 97
== END 2020-10-03 17:30 | disposition home or self-care (01) ==
PROVIDERS: Emergency Provider Emergency Medicine; PCP Family Medicine
DX: M54.6 Pain in thoracic spine (principal); I50.9 Heart failure, unspecified; I48.91 Unspecified atrial fibrillation; J44.9 Chronic obstructive pulmonary disease, unspecified; F17.210 Nicotine dependence, cigarettes, uncomplicated
CPT/HCPCS: 12345; 71045; 99281; 99282

== ENCOUNTER → 2021-02-22 05:59 | Day surgery (SDC) | payer MEDICARE, SELFPAY ==
--- NOTE | 2021-02-22 06:22 | ECG_ITS ---
[facility] Test Date: 2021-02-22 Pat Name: Tiarra Piper Department: Room: Gender: Female Salmon Gillnet Vessel Operator: : 1960 Requested By: Sree Warren Order Number: [id number] Dave MD: Sree Warren M.D. Measurements Intervals [place] Rate: 64 P: 263 [place]: 197 QRS: 39 QRSD: 97 T: 22 QT: 413 QTc: 427 Interpretive Statements Atrial flutter with variable block MODERATE ST DEPRESSION [0.05+ mV ST DEPRESSION] Compared to ECG 07/16/2018 13:47:21 Ectopic atrial rhythm now present ST (T wave) deviation now present Sinus bradycardia no longer present First degree AV block no longer present Electronically Signed On 02-24-2021 8:06:02 CDT by Sree Warren M.D. [id number]
[2021-02-22 06:23] VITALS: BMI 30.7
[2021-02-22 06:24] VITALS: TEMP 36.7
[2021-02-22 06:27] VITALS: BP 126/73; PULSE 83; RESP 18; O2SAT 94
--- NOTE | 2021-02-22 06:54 | ANES.PREANE2 ---
Pre-Anesthetic Assessment Pre-Anesthetic Assessment: Height/Weight: Height 1.7 m Weight 88.904 kg Temp Pulse Resp BP Pulse Ox 98.0 F 83 18 126/73 94 02/22/21 06:24 02/22/21 06:27 02/22/21 06:27 02/22/21 06:27 02/22/21 06:27 Preop Diagnosis: atrial flutter Proposed Procedure: Operation Date: 02/22/21 07:00 Proposed Procedures p Cardioversion 76284 I48.91(Not Applicable) - Sree Warren M.D Was Beta Caprice taken within 24 hours: Yes Social: Social History: Tobacco Exam: Pre-Anes Outpt Exam: alert, oriented x 3, clear to auscultation bilaterally and regular rate & rhythm Airway: Submandibular: WNL Cervical ROM: WNL MP: 2 Dentition: Full History/ROS: No significant history except as noted and No significant complaints Pulmonary: Pulmonary: COPD and ARTEAGA CV/HEM: CV/HEM: Afib, Angina (Stable), CHF and HTN : : None reported Hepatic: Hepatic: None reported GI: GI: None reported Metabolic: Metabolic: None reported Neuropsych: Neuropsych: Anxiety Anesthetic Plan: ASA status: 3 Anesthesia: MAC Risk of > 500 ml blood loss (7ml/kg in children): No Meds/Allergies Current Medications: Current Medications Generic Name Dose Route Start Last Admin Trade Name Freq PRN Reason Stop Dose Admin Sodium Chloride 1,000 mls @ 30 ml s/hr 02/22/21 06:30 02/22/21 06:29 Sodium Chloride 0.9% IV 02/23/21 06:29 Not Given .Q24H MAEGAN PFSH Anesthesia PFSH: Medical History Anticoagulation adequate with anticoagulant therapy Xarelto Atrial fibrillation and flutter Congestive heart failure COPD (chronic obstructive pulmonary disease) Tobacco abuse Surgical History History of arthroplasty of right hip Social History Smoking and tobacco status: current every day smoker cigarettes Packs smoked per day: 0.5 Years cigarettes smoked: 40 Second hand smoke exposure: No Alcohol intake: never Lives independently: Yes Marital status: / Current occupational status: disabled History of recent travel: No Current gender identity: Female Data Anesthesia Cardiac Studies: No Data to Display
--- NOTE | 2021-02-22 07:27 | USCV_ITS ---
Tiarra Piper Age: 60 Gender: F : 1960 Exam Date: 02/22/2021 07:38 Ordering Phys: Sree Warren M.D ([email or web address]) Technologist: Bettye Adams Exam Location: [facility] [place] Indication: CHEST PAIN BP: 126 / 73 HR: 52 Rhythm: Atrial flutter Technical Quality: Adequate MEASUREMENTS (Male / Female) Normal Values 2D ECHO LV Diastolic Diameter PLAX 3.7 cm 4.2 - 5.9 / 3.9 - 5.3 cm LV Systolic Diameter PLAX 2.3 cm LV Chamber Size 3.4 cm IVS Diastolic Thickness 1.4 cm 0.6 - 1.0 / 0.6 - 0.9 cm IVS Systolic Thickness 1.1 cm LVPW Diastolic Thickness 1.2 cm 0.6 - 1.0 / 0.6 - 0.9 cm LVPW Systolic Thickness 1.2 cm RV Chamber Size 3.5 cm LVOT Diameter 2.0 cm LV Ejection Fraction 2D Teich 71.0 % LV Ejection Fraction MOD 2C 43.8 % LV Ejection Fraction 2C AL 46.3 % LA Diameter 3.1 cm LA Width 3.5 cm LA Height 4.4 cm RA Width 4.0 cm RA Height 4.5 cm Aorta at Sinotubular Diameter 2.8 cm M-MODE LV Diastolic Diameter MM 3.1 cm 4.2 - 5.9 / 3.9 - 5.3 cm LV Systolic Diameter MM 2.1 cm LV Ejection Fraction MM Teich 63.7 % IVS Diastolic Thickness MM 1.3 cm 0.6 - 1.0 / 0.6 - 0.9 cm IVS Systolic Thickness MM 1.3 cm LVPW Diastolic Thickness MM 1.2 cm 0.6 - 1.0 / 0.6 - 0.9 cm LVPW Systolic Thickness MM 1.3 cm Aortic Annulus Diameter 3.5 cm LA Ao Ratio MM 0.9 MV E Point Septal Separation 0.5 cm DOPPLER AV Peak Velocity 148.0 cm/s LVOT Peak Velocity 110.0 cm/s AV Area Cont Eq vti 2.7 cm squared AV Area Cont Eq pk 2.4 cm squared MV Area PHT 4.0 cm squared Mitral E to A Ratio 38.9 MV E' Velocity 50.5 cm/s Mitral E to MV E' Ratio 7.3 Mitral E to LV E' Lateral Ratio 7.3 Mitral E to LV E' Septal Ratio 7.2 TR Peak Velocity 137.2 cm/s TR Peak Gradient 7.5 mmHg TR Mean Velocity 92.3 cm/s TR Mean Gradient 4.0 mmHg TR Velocity Time Integral 30.9 cm TV Peak E Velocity 46.0 cm/s Right Atrial Pressure 3.0 mmHg Pulmonary Artery Systolic Pressu 10.5 mmHg PV Peak Velocity 53.0 cm/s RV Acceleration Time 0.2 s RV Ejection Time 0.4 s RV AcT/ET 0.4 FINDINGS Left Ventricle Normal left ventricular size. LV systolic function is normal with EF of 55-60%. No regional wall motion abnormalities. Diastolic function cannot be determined because of atrial fibrillation. Right Ventricle The right ventricle is normal in size and function. Right Atrium The right atrium is normal in size. Left Atrium The left atrium is normal in size. Mitral Valve Structurally normal mitral valve without significant stenosis or prolapse. There is trace mitral regurgitation. Aortic Valve Aortic valve is grossly normal without significant stenosis. There is no aortic regurgitation. Tricuspid Valve Structurally normal tricuspid valve without significant stenosis or regurgitation. Insufficient TR jet to calculate RVSP Pulmonic Valve Structurally normal pulmonic valve without significant stenosis. There is no pulmonic regurgitation. Pericardium Normal pericardium without effusion. Aorta Normal ascending aorta dimension. CONCLUSIONS LV systolic function is normal with EF of 55-60% Diastolic function cannot be determined because of atrial fibrillation. Trace mitral regurgitation No signficant changes noted compared to prior echocardiogram from 06/04/2018 Sree Warren MD (Electronically Signed) Final Date: 25 Feb 2021 12:30 S
--- NOTE | 2021-02-22 07:33 | PM.MISC ---
Miscellaneous Note Purpose of Documentation: Procedure cancellation Note: Patient was scheduled for cardioversion for atrial flutter. Patient's heart rate was in 80s in atrial flutter at time of check in but then dropped into 50's. We cancelled the procedure for today and will reschedule later as there is risk of causing significant bradycardia after cardioversion. Discussed with the patient, who is in agreement with the plan.
== END ==
LOC: CCL 06:06
PROVIDERS: PCP Family Medicine; Visit Provider Internal Medicine
DX: I48.92 Unspecified atrial flutter (principal); J44.9 Chronic obstructive pulmonary disease, unspecified; I48.91 Unspecified atrial fibrillation; I11.0 Hypertensive heart disease with heart failure; I50.9 Heart failure, unspecified; F41.9 Anxiety disorder, unspecified; Z79.01 Long term (current) use of anticoagulants; F17.210 Nicotine dependence, cigarettes, uncomplicated
CPT/HCPCS: 93005; 93306

== ENCOUNTER 2021-03-12 06:04 | Day surgery (SDC) | payer MEDICARE, SELFPAY ==
--- NOTE | 2021-03-12 06:06 | ECG_ITS ---
[facility] Test Date: 2021-03-12 Pat Name: Tiarra Piper Department: Room: Gender: Female Log Tumbler: : 1960 Requested By: Sree Warren Order Number: [id number] Reading MD: DIAN IVY Measurements Intervals [place] Rate: 64 P: [place]: QRS: -18 QRSD: 108 T: 10 QT: 420 QTc: 435 Interpretive Statements ATRIAL FLUTTER/TACHYCARDIA POSSIBLE ANTERIOR MYOCARDIAL INFARCTION [30 ms Q WAVE IN V3/V4, OR R < 0.2 mV IN V4], PROBABLY OLD MODERATE T-WAVE ABNORMALITY, CONSIDER INFERIOR ISCHEMIA [-0.1+ mV T WAVE IN II/aVF] Compared to ECG 02/22/2021 06:36:55 Myocardial infarct finding now present T-wave abnormality now present Possible ischemia now present ST (T wave) deviation no longer present Electronically Signed On 03-12-2021 21:23:23 CDT by DIAN IVY [id number]
--- NOTE | 2021-03-12 07:20 | P.MISC_ITS ---
Miscellaneous Note Purpose of Documentation: Cancellation of cardioversion Note: Patient was scheduled to undergo cardioversion today, however she was found to have normal sinus rhythm at presentation. She briefly went into atrial flutter thereafter and then converted spontaneously back to normal sinus rhythm. Electrical cardioversion is not going to benefit her as she is spontaneously converting back to NSR. We will increase dose of amiodarone to 400mg BID for 2 w eeks and see her back in office. As her heart rate is low, we will stop metoprolol at this time and she will monitor her heart rate at home. At outpatient visit we will determine medication stretegy based on if she stays in normal sinus rhythm.
--- NOTE | 2021-03-12 07:21 | ECG_ITS ---
[facility] Test Date: 2021-03-12 Pat Name: Tiarra Piper Department: Room: Gender: Female Tool Engineer: : 1960 Requested By: Sree Warren Order Number: [id number] Reading MD: DIAN IVY Measurements Intervals [place] Rate: 66 P: [place]: QRS: -11 QRSD: 92 T: 10 QT: 417 QTc: 438 Interpretive Statements ATRIAL FLUTTER/TACHYCARDIA POSSIBLE ANTERIOR MYOCARDIAL INFARCTION [30 ms Q WAVE IN V3/V4, OR R < 0.2 mV IN V4], OF INDETERMINATE AGE MODERATE T-WAVE ABNORMALITY, CONSIDER LATERAL ISCHEMIA [-0.1+ mV T WAVE IN I/aVL/V5/V6] MODERATE T-WAVE ABNORMALITY, CONSIDER INFERIOR ISCHEMIA [-0.1+ mV T WAVE IN II/aVF] Compared to ECG 03/12/2021 06:25:31 No significant changes Electronically Signed On 03-12-2021 21:19:54 CDT by DIAN IVY [id number]
--- NOTE | 2021-03-12 07:27 | PC.NURSE ---
Due to heart rate in the low 60s, the cardioversion has been canceled. Medication changes have been discussed and the patient verbalizes understanding. A repeat EKG has been ordered and the patient will then be sent home.
== END 2021-03-12 08:03 | disposition home or self-care (01) ==
PROVIDERS: PCP Family Medicine; Visit Provider Internal Medicine
DX: Z53.9 Procedure and treatment not carried out, unspecified reason (principal)
CPT/HCPCS: 93005

== ENCOUNTER → 2021-03-15 11:37 | Outpatient (BNVA) | payer MEDICARE, SELFPAY | PROVIDERS: PCP Family Medicine; Visit Provider Orthopaedic Surgery | DX: M25.551 Pain in right hip (principal); Z96.641 Presence of right artificial hip joint | CPT/HCPCS: 73502 ==

== ENCOUNTER → 2021-05-12 15:49 | Outpatient (BNVA) | payer MEDICARE, SELFPAY | PROVIDERS: PCP Family Medicine; Visit Provider Family Medicine | DX: I48.91 Unspecified atrial fibrillation (principal); I48.92 Unspecified atrial flutter; I50.9 Heart failure, unspecified; J44.9 Chronic obstructive pulmonary disease, unspecified; M25.552 Pain in left hip; G89.29 Other chronic pain | CPT/HCPCS: 80053; 80061; 84443; 85025 ==

== ENCOUNTER 2021-06-20 08:23 | Emergency (ER) | payer MEDICARE, SELFPAY ==
[2021-06-20 08:42] VITALS: BP 140/83; PULSE 69; RESP 18; TEMP 37.1; O2SAT 95; BMI 31.3
--- NOTE | 2021-06-20 08:54 | ED_ITS ---
HPI - Dental/Oral General: Chief complaint: Dental/Oral Stated complaint: TOOTH PAIN Time Seen by Provider: 06/20/21 08:32 History of Present Illness: HPI Narrative: Patient has swelling right upper molar times few days. He has a history of dental caries. Patient unable to afford dental care at this time. MD Complaint: tooth pain Teeth map: 1. Pain and swelling Onset (ago): week(s) Duration: constant Severity: moderate Context: history of dental caries Associated symptoms: Reports gum swelling; Denies fever(s) Treatment prior to arrival: none Review of Systems Const: Denies: fever(s), chills or body aches Eyes: Denies: change in vision or blurry vision ENMT: Reports: dental pain; Denies: throat pain or nasal congestion Card: Denies: chest pain or dyspnea on exertion Resp: Denies: dyspnea, productive cough or non-productive cough GI: Denies: abdominal pain, nausea or vomiting Musc: Denies: extremity pain Skin/Breast: Denies: rash Neuro: Denies: headache(s) Psych: Denies: anxiety or depression Kwabena/Lymph: Denies: easy bruising PFSH ED PFSH: Medical History Anticoagulation adequate with anticoagulant therapy Xarelto Atrial fibrillation and flutter Congestive heart failure COPD (chronic obstructive pulmonary disease) Tobacco abuse Surgical History History of arthroplasty of right hip Social History Smoking and tobacco status: current every day smoker cigarettes Packs smoked per day: 0.5 Years cigarettes smoked: 40 Second hand smoke exposure: No Alcohol intake: never Lives independently: Yes Marital status: / Current occupational status: disabled History of recent travel: No Current gender identity: Female Physical Exam Const: COMMON NORMALS: no acute distress GENERAL APPEARANCE: cooperative HENMT: COMMON NORMALS: normocephalic, TM's normal bilaterally and Normal external nose present HEAD & SCALP: normocephalic FACE & SINUS: normal facial exam NOSE: Normal external nose present TYMPANIC MEMBRANE: TM's normal bilaterally MOUTH: Abnormal oral and palatal mucosa present erythematous (Right upper aspect) TEETH & GINGIVA: Yes caries (Right #2 tooth) THROAT: posterior oropharynx normal OTHER: No lymphadenopathy noted but has tenderness in the right jaw. Able to speak in complete sentences without apparent difficulty. Has swelling to the gum surrounding tooth no obv ious abscess noted. Neck/C-Spine: CERVICAL SPINE: Yes cervical ROM normal Lymph: LYMPHATIC: no lymphadenopathy noted Course Vital Signs: Vital signs: Vital Signs Temperature 98.7 F 06/20/21 08:42 Pulse Rate 69 06/20/21 08:42 Respiratory Rate 18 06/20/21 08:42 Blood Pressure 140/83 06/20/21 08:42 Pulse Oximetry 95 06/20/21 08:42 Discharge Plan Discharge Patient Disposition: Home Clinical Impression: Dental abscess Condition: Stable Prescriptions: New clindamycin HCl 300 mg capsule 300 mg PO Q8H 7 Days Qty: 21 RF: 0 No Action Xarelto 20 mg tablet 20 mg PO DAILY 90 Days Qty: 90 RF: 3 spironolactone 25 mg tablet 25 mg PO DAILY Qty: 90 RF: 3 digoxin 125 mcg (0.125 mg) tablet 125 mcg PO DAILY 90 Days Qty: 90 RF: 3 furosemide 40 mg tablet 40 mg PO BID Qty: 180 RF: 3 albuterol sulfate 90 mcg/actuation HFA aerosol inhaler 2 puff INHALATION Q6H PRN (Reason: shortness of breath or wheezing) Qty: 13.4 RF: 11 metoprolol tartrate 50 mg tablet 25 mg PO BID Qty: 90 RF: 3 hydrocodone-acetaminophen 10-325 mg tablet 1 tab PO Q8H PRN (Reason: pain) 10 Days Qty: 30 RF: 0 amiodarone 200 mg tablet 400 mg PO BID Qty: 90 RF: 3 Mucinex D 400 MG 400 mg PO BID RF: 0 acetaminophen [Tylenol Extra Strength] 500 mg Tablet 500 mg PO Q6H PRN (Reason: Pain) RF: 0 Discharge Orders: Discharge ED (Routine); Ordered 06/20/21 Ordered By: Luke Trivedi Referrals: Noemi Osman MD [Primary Care Provider] - Discharge Diet: Usual diet Discharge Activity: Resume usual activity Patient Instructions: Dental Abscess (ED) Activity Restrictions/Additional Instructions: Follow-up with medical provider as directed. Take medications as prescribed. Return to the ER or your medical provider if condition worsens. Please read and understand discharge instructions. If any questions ask please. Follow-up with a dentist as soon as possible. Can access services at [facility] in [facility] to see if they can pull your free of charge. Coding Level of Care Code ED Paper Machine Supervisor for Carol Phelps
[2021-06-20] MEDS: cefTRIAXone 1,000 MG in lidocaine 1% 2.1 ML 2.1 MG IM (09:12)
[2021-06-20 09:20] VITALS: BP 125/69; PULSE 64; O2SAT 91
== END 2021-06-20 09:26 | disposition home or self-care (01) ==
PROVIDERS: Emergency Provider Nurse Practitioner Family; PCP Family Medicine
DX: K04.7 Periapical abscess without sinus (principal); I48.91 Unspecified atrial fibrillation; I50.9 Heart failure, unspecified; J44.9 Chronic obstructive pulmonary disease, unspecified; Z79.01 Long term (current) use of anticoagulants; F17.210 Nicotine dependence, cigarettes, uncomplicated
CPT/HCPCS: 96372; 99283; J0696

== ENCOUNTER 2021-09-26 12:06 | Emergency (ER) | payer MEDICARE, SELFPAY ==
[2021-09-26 12:16] VITALS: BP 158/85; PULSE 85; RESP 16; TEMP 36.4; O2SAT 95
--- NOTE | 2021-09-26 12:29 | XRR_ITS ---
PROCEDURE INFORMATION: Exam: XR Cervical Spine Exam date and time: 09/26/2021 12:29 PM Age: 61 years old Clinical indication: Neck pain TECHNIQUE: Imaging protocol: XR of the cervical spine. Views: 2 or 3 views. COMPARISON: CR XR chest 1V portable [id number] 10/03/2020 4:27 PM FINDINGS: Bones/joints: Alignment is normal. posterior vertebral line and the spinal laminar line normal. odontoid process normal. no fracture. Mild degenerative disc disease most pronounced C5-C6 Soft tissues: Unremarkable. XR/XR cervical spine 3V* [id number] IMPRESSION: Mild degenerative disc disease Radiation Dose CTDIVOL = (mGy): DLP = (mGy-cm)
--- NOTE | 2021-09-26 12:30 | ED_ITS ---
HPI - Back Pain/Injury General: Chief Complaint: Back Pain/Injury Stated Complaint: R SHOULDER/BACK PAIN, R ARM NUMBNESS Time Seen by Provider: 09/26/21 12:20 Source: patient Mode of arrival: ambulatory Limitations: no limitations History of Present Illness: HPI Narrative: Diffuse upper back/neck pain. Difficulty getting dressed or performing ADLs No OTC treatments attempted prior to arrival. MD elicited complaint: back pain Onset (ago): week(s) (1) Timing: constant and progressively worsening Severity: moderate Similar Symptoms Previously: Yes (History of similar occurance 1 year ago.) Quality: dull and spasming Location: right upper back Exacerbating factors: movement and lifting Relieving factors: sitting upright and other (Heat) Context: other (Progressively worsened over the week, no known injury.) Associated symptoms: Reports no associated symptoms Treatments prior to arrival: heat therapy Work related injury: No Review of Systems General: Reports: 10 or more systems reviewed and unremarkable except in HPI and below Musc: Reports: back pain and limited range of motion PFSH ED PFSH: Medical History Anticoagulation adequate with anticoagulant therapy Xarelto Atrial fibrillation and flutter Congestive heart failure COPD (chronic obstructive pulmonary disease) Tobacco abuse Surgical History History of arthroplasty of right hip Social History Second hand smoke exposure: No Alcohol intake: current Alcohol intake frequency: holidays/special occasions only Lives independently: Yes Household members: none Marital status: / service: No Current occupational status: disabled History of recent travel: No Current gender identity: Female Special freddy needs: No Physical Exam Const: COMMON NORMALS: no acute distress, average body habitus, patient oriented x3, healthy appearing and alert GENERAL APPEARANCE: cooperative, well kempt and anxious HENMT: COMMON NORMALS: normocephalic, atraumatic and hearing grossly normal bilaterally HEAD & SCALP: normal to inspection, normocephalic and atraumatic Eye: COMMON NORMALS: Equal, round and reactive pupils present, EOMs intact bilaterally and normal visual reid by confrontation GENERAL EYE: appearance normal, both eyes and all related structures PUPIL: Yes Equal, round and reactive pupils present Neck/C-Spine: COMMON NORMALS: full ROM, no lymphadenopathy, no JVD and Thyroid normal GENERAL: Yes normal visual inspection and Yes trachea midline THYROID: Thyroid normal CERVICAL SPINE: Yes cervical ROM abnormal other (Full rotation but tearful due to pain to lateral flexion to right and rotation to the left.), Yes Paracervical muscle tenderness, Yes Paracervical spasm and Yes Trapezius muscle tenderness Lymph: LYMPHATIC: no lymphadenopathy noted Resp: COMMON NORMALS: normal respiratory effort, No retractions, No use of accessory muscles and clear to auscultation bilaterally EFFORT & INSPECTION: Yes able to speak in complete sentences AUSCULTATION: clear to auscultation bilaterally Cardio: COMMON NORMALS: no JVD, regular rate, regular rhythm, S1 normal heart sound present and S2 normal heart sound present RATE: regular rate RHYTHM: regular rhythm HEART SOUNDS: S1 normal heart sound present and S2 normal heart sound present GI: COMMON NORMALS: Normal to inspection, nondistended, normoactive bowel sounds present Extremity: GENERAL: Yes normal exam except as noted Neuro: COMMON NORMALS: patient oriented x3 SENSORIUM/ORIENTATION: Yes alert Psych: COMMON NORMALS: mental status grossly normal and Normal thought process present APPEARANCE: Yes well kempt MOOD & AFFECT: Yes tearful THOUGHT PROCESS: Normal thought process present Skin: COMMON NORMALS: no rashes or lesions noted and no wounds GENERAL SKIN EXAM: no rashes or lesions noted Course ED course: Presents to the ER with progression of pain over the course of the last week. Attempted to control pain with conservative measures including heat. No [id number] medications taken for treatment pain progressively worsened last night where patient took an old hydrocodone from a previous surgery. No improvement in pain despite medication, however she was able to sleep some. Tearful during examination complains of tightness and pain reproducible at the trapeze muscle right sided, difficulty picking up objects and rotating head related to pain in the muscles diffusely Reevaluation(s): Reevaluation #1: Patient does not take any NSAIDs, so is not wanting to take toradol. Her sister will come pick her up, so we will give her a muscle relaxer for spasms. Time: 13:43 Vital Signs: Vital signs: Vital Signs Temperature 97.5 F L 09/26/21 12:16 Pulse Rate 85 09/26/21 12:16 Respiratory Rate 16 09/26/21 12:16 Blood Pressure 158/85 09/26/21 12:16 Pulse Oximetry 95 09/26/21 12:16 MDM - Back Pain/Injury Medical Records: Attestation: I reviewed the patient's medical records. Imaging Data^: Xray Ortho: My impression: [id number] [place], [place] [address]IObq ReportSigned Patient: Tiarra Piper #: [id number]: [id number]#:[id number]/Sex: 61 / FADM Date: 09/26/21Loc: ERRoom/Bed:Attending Dr: Ordering Provider/Ordering MD: Ailyn Lopez Date of Service: 09/26/21 Procedure(s): XR cervical spine 3V* [id number] Accession Number(s): [id number] Report Number: [id number] PROCEDURE INFORMATION: Exam: XR Cervical Spine Exam date and time: 09/26/2021 12:29 PM Age: 61 years old Clinical indication: Neck pain TECHNIQUE: Imaging protocol: XR of the cervical spine. Views: 2 or 3 views. COMPARISON: CR XR chest 1V portable [id number] 10/03/2020 4:27 PM FINDINGS: Bones/joints: Alignment is normal. posterior vertebral line and the spinal laminar line normal. odontoid process normal. no fracture. Mild degenerative disc disease most pronounced C5-C6 Soft tissues: Unremarkable. XR/XR cervical spine 3V* [id number] IMPRESSION: Mild degenerative disc disease Radiation Dose CTDIVOL = (mGy): DLP = (mGy-cm) Dictated By:Logan Alston MDSigned By:Logan Alston MDSigned Date/Ti me:09/26/21 1342DD/ 1229 Discharge Plan Discharge Patient Disposition: Home Clinical Impression: DJD (degenerative joint disease) of cervical spine Qualifiers: Spinal osteoarthritis complication: with radiculopathy Qualified Code(s): M47.22 - Other spondylosis with radiculopathy, cervical region Condition: Stable Prescriptions: New tizanidine 2 mg tablet 2 mg PO Q8H PRN (Reason: muscle spasticity) Qty: 20 RF: 0 No Action Xarelto 20 mg tablet 20 mg PO DAILY 90 Days Qty: 90 RF: 3 spironolactone 25 mg tablet 25 mg PO DAILY Qty: 90 RF: 3 digoxin 125 mcg (0.125 mg) tablet 125 mcg PO DAILY 90 Days Qty: 90 RF: 3 furosemide 40 mg tablet 40 mg PO BID Qty: 180 RF: 3 albuterol sulfate 90 mcg/actuation HFA aerosol inhaler 2 puff INHALATION Q6H PRN (Reason: shortness of breath or wheezing) Qty: 13.4 RF: 11 metoprolol tartrate 50 mg tablet 25 mg PO BID Qty: 90 RF: 3 hydrocodone-acetaminophen 10-325 mg tablet 1 tab PO Q8H PRN (Reason: pain) 10 Days Qty: 30 RF: 0 penicillin V potassium 500 mg tablet 500 mg PO TID 10 Days Qty: 30 RF: 0 amiodarone 200 mg tablet 200 mg PO DAILY RF: 0 Mucinex D 400 MG 400 mg PO BID RF: 0 acetaminophen [Tylenol Extra Strength] 500 mg Tablet 500 mg PO Q6H PRN (Reason: Pain) RF: 0 Discharge Orders: Discharge ED (Routine); Ordered 09/26/21 Ordered By: Ailyn Lopez Referrals: Noemi Osman MD [Primary Care Provider] - Discharge Diet: Usual diet Discharge Activity: Limit activity as instructed Patient Instructions: Opioid Safety Coding Level of Care Code ED Spring Fitter Helper for Carol Fwd Exam Comprehensive
[2021-09-26] MEDS: ketorolac 60 mg/2 mL INJ IM (12:42)
[2021-09-26] MEDS: tizanidine 4 mg Tablet 2 MG PO (13:48)
[2021-09-26] MEDS: dexamethasone 10 mg/mL INJ 4 MG IM (13:49)
== END 2021-09-26 14:16 | disposition home or self-care (01) ==
PROVIDERS: Emergency Provider Nurse Practitioner Family; PCP Family Medicine
DX: M47.22 Other spondylosis with radiculopathy, cervical region (principal); I50.9 Heart failure, unspecified; J44.9 Chronic obstructive pulmonary disease, unspecified
CPT/HCPCS: 72040; 96372; 99283; J1100; J1885

== ENCOUNTER → 2021-12-28 17:00 | Outpatient (BNVA) | payer MEDICARE, SELFPAY | PROVIDERS: PCP Family Medicine; Visit Provider Orthopaedic Surgery | DX: M79.604 Pain in right leg (principal) | CPT/HCPCS: 86140 ==

== ENCOUNTER → 2022-01-04 12:16 | Outpatient (BNVA) | payer MEDICARE, SELFPAY | PROVIDERS: PCP Family Medicine; Visit Provider Orthopaedic Surgery | DX: M25.50 Pain in unspecified joint (principal) | CPT/HCPCS: 85651 ==

== ENCOUNTER → 2022-01-24 15:14 | Outpatient (BNVA) | payer MEDICARE, SELFPAY | PROVIDERS: PCP Family Medicine; Visit Provider Internal Medicine Cardiovascular Disease | DX: R06.02 Shortness of breath (principal); I48.91 Unspecified atrial fibrillation; F17.210 Nicotine dependence, cigarettes, uncomplicated | CPT/HCPCS: 99213 ==

== ENCOUNTER → 2022-08-01 14:15 | Outpatient (BNVA) | payer MEDICARE, SELFPAY | PROVIDERS: PCP Family Medicine; Visit Provider Internal Medicine | DX: R00.2 Palpitations (principal); R06.02 Shortness of breath; R07.89 Other chest pain; Z79.01 Long term (current) use of anticoagulants; I50.9 Heart failure, unspecified; I48.91 Unspecified atrial fibrillation; I48.92 Unspecified atrial flutter; F17.210 Nicotine dependence, cigarettes, uncomplicated | CPT/HCPCS: 99213 ==

== ENCOUNTER → 2023-04-04 16:56 | Outpatient (BNVA) | payer MEDICARE, SELFPAY | PROVIDERS: PCP Family Medicine; Visit Provider Internal Medicine | DX: I48.91 Unspecified atrial fibrillation (principal); I50.9 Heart failure, unspecified; I48.92 Unspecified atrial flutter; F17.210 Nicotine dependence, cigarettes, uncomplicated; J44.9 Chronic obstructive pulmonary disease, unspecified | CPT/HCPCS: 36415; 80048; 80162; 83880; 99214 ==

== ENCOUNTER 2023-04-21 14:38 | Outpatient (CLI) | payer MEDICARE, SELFPAY ==
--- NOTE | 2023-04-21 15:00 | USCV_ITS ---
Tiarra Piper Age: 62 Gender: F : 1960 Exam Date: 04/21/2023 15:11 Ordering Phys: Sree Warren M.D ([email or web address]) Technologist: FIDEL Exam Location[place] [facility] [place] Indication: post stemi BP: / HR: 78 Rhythm: Sinus Technical Quality: Adequate MEASUREMENTS (Male / Female) Normal Values 2D ECHO LV Diastolic Diameter PLAX 3.9 cm 4.2 - 5.9 / 3.9 - 5.3 cm LV Systolic Diameter PLAX 2.3 cm IVS Diastolic Thickness 0.8 cm 0.6 - 1.0 / 0.6 - 0.9 cm IVS Systolic Thickness 1.2 cm LVPW Diastolic Thickness 0.7 cm 0.6 - 1.0 / 0.6 - 0.9 cm LVPW Systolic Thickness 1.1 cm LVOT Diameter 1.8 cm LV Ejection Fraction 2D Teich 73.1 % LV Ejection Fraction MOD 2C 56.6 % LV Ejection Fraction 2C AL 56.4 % LA Diameter 3.4 cm M-MODE Aortic Annulus Diameter 3.1 cm LA Ao Ratio MM 1.5 MV E Point Septal Separation 0.4 cm DOPPLER AV Peak Velocity 129.0 cm/s LVOT Peak Velocity 94.0 cm/s AV Area Cont Eq vti 2.0 cm squared AV Area Cont Eq pk 1.8 cm squared MV Area PHT 5.0 cm squared Mitral E to A Ratio 1.2 MV E' Velocity 37.0 cm/s Mitral E to MV E' Ratio 8.2 Mitral E to LV E' Lateral Ratio 6.1 Mitral E to LV E' Septal Ratio 12.2 TR Peak Velocity 177.0 cm/s TR Peak Gradient 12.5 mmHg TV Peak E Velocity 39.0 cm/s Right Atrial Pressure 3.0 mmHg Pulmonary Artery Systolic Pressu 15.5 mmHg FINDINGS Left Ventricle Normal left ventricular cavity size and systolic function. Left ventricular ejection fraction is estimated at 60-65 %. No regional wall motion abnormalities. Rhythm precludes evaluation of diastolic function. Right Ventricle Normal right ventricular size and systolic function. RVSP could not be calculated due to incomplete tricuspid regurgitation velocity profile. Right Atrium Normal right atrial size. Left Atrium Normal left atrial size. Mitral Valve Thickened mitral valve. No mitral valve stenosis. No mitral valve regurgitation. Aortic Valve Aortic valve not well visualized. No aortic valve stenosis. No aortic valve regurgitation. Tricuspid Valve Structurally normal tricuspid valve. Trace tricuspid valve regurgitation. Pulmonic Valve Pulmonic valve not well visualized. Pericardium No pericardial effusion. Aorta Normal size aortic root and proximal ascending aorta. IVC Normal IVC dimension with >50% respiratory change of the inferior vena cava. CONCLUSIONS 1. Normal left ventricular cavity size and systolic function. Left ventricular ejection fraction is estimated at 60-65 %. No regional wall motion abnormalities. 2. No significant valvular abnormality. 3. No change when compared to study dated 02/25/2021. Diane Thompson MD (Electronically Signed) Final Date: 22 April 2023 22:32 S
== END 2023-04-21 14:39 | disposition home or self-care (01) ==
PROVIDERS: PCP Family Medicine; Visit Provider Internal Medicine
DX: R07.9 Chest pain, unspecified (principal); R06.02 Shortness of breath
CPT/HCPCS: 93306

== ENCOUNTER 2023-05-31 06:00 | Outpatient (RCR) | payer MEDICARE, SELFPAY | END 2023-06-22 23:59 | disposition home or self-care (01) | LOC: TPT 06:00 | PROVIDERS: PCP Family Medicine; Visit Provider Family Medicine | DX: M25.552 Pain in left hip (principal); G89.29 Other chronic pain | CPT/HCPCS: 97110; 97163 ==

== ENCOUNTER 2023-06-23 06:00 | Outpatient (RCR) | payer MEDICARE, SELFPAY | END 2023-07-22 23:59 | disposition home or self-care (01) | LOC: TPT 06:00 | PROVIDERS: PCP Family Medicine; Visit Provider Family Medicine | DX: M25.552 Pain in left hip (principal); G89.29 Other chronic pain | CPT/HCPCS: 97110 ==

== ENCOUNTER 2023-07-31 23:15 | Emergency (ER) | payer MEDICARE, SELFPAY ==
[2023-07-31 23:23] VITALS: BP 155/84; PULSE 64; RESP 18; TEMP 36.9; O2SAT 96; BMI 33.0
--- NOTE | 2023-07-31 23:41 | ED_ITS ---
HPI - URI/Sore Throat General: Chief Complaint: Upper Respiratory Infection Stated Complaint: cough,congestion Time Seen by Provider: 07/31/23 23:17 Source: patient Mode of arrival: ambulatory Limitations: no limitations History of Present Illness: Patient is a 63-year-old female with a history of COPD here for complaints of a cough. Patient states several days ago she began noticing nasal congestio n/sinus pain, runny nose, postnasal drainage, sore throat. She states at that time she did have one day of reported/subjective fevers that have since subsided. She states she feels like symptoms have now moved down in my chest . She states she had a few days of very productive coughing but feels like her cough has now become nonproductive. Patient does have an albuterol inhaler she uses for COPD. She is no longer running fevers. Denies sick contacts. MD elicited complaint: fever, cough, nasal congestion and sinus pain Pertinent past history: COPD Onset (ago): day(s) Severity: moderate Description of mucous: green Able to tolerate fluids by mouth: Yes Exacerbating factors: nothing Relieving factors: nothing Associated symptoms: Reports fever(s) (several days ago but subsided now), nasal congestion and sinus pain; Deny chills, chest pain, epistaxis or ear or mastoid pain Treatments prior to arrival: none Review of Systems Const: Reports: fever(s) (several days ago but subsided now); Denies: chills, body aches, fatigue or malaise Eyes: Denies: change in vision, blurry vision, photophobia, floaters or seeing flashes ENMT: Reports: nasal discharge, nasal congestion and sinus pain; Denies: throat pain, odynophagia, ear or mastoid pain or epistaxis Card: Denies: chest pain, palpitations, irregular heart rhythm, edema, swelling of feet/ankles, lightheadedness, syncope or pre-syncope Resp: Reports: dyspnea, productive cough, non-productive cough, change in phlegm color and chest congestion; Denies: wheezing or hemoptysis [facility] ED PFSH: Medical History Anticoagulation adequate with anticoagulant therapy Xarelto Atrial fibrillation and flutter Congestive heart failure COPD (chronic obstructive pulmonary disease) Tobacco abuse Surgical History History of arthroplasty of right hip Social History Smoking and tobacco status: current every day smoker cigarettes Packs smoked per day: 0.5 Years cigarettes smoked: 40 Second hand smoke exposure: No Alcohol intake: current Alcohol intake frequency: holidays/special occasions only Substance/Drug Use: never Lives independently: Yes Household members: none Marital status: / service: No Current occupational status: disabled Current gender identity: Female Special freddy needs: No Physical Exam Const: COMMON NORMALS: no acute distress, patient oriented x3, no limitations, alert and well nourished GENERAL APPEARANCE: cooperative HENMT: COMMON NORMALS: normocephalic, atraumatic, external ears normal, EAC's normal, TM's normal bilaterally and Normal external nose present HEAD & SCALP: normal to inspection, normocephalic and atraumatic FACE & SINUS: normal facial exam and sinuses nontender NOSE: Normal external nose present EXTERNAL EAR: Yes external ears normal EXTERNAL AUDITORY CANAL: EAC's normal TYMPANIC MEMBRANE: TM's normal bilaterally MOUTH: Normal oral and palatal mucosa present, lip normal and tongue normal THROAT: posterior oropharynx normal, tonsils normal and uvula midline Eye: GENERAL EYE: appearance normal, both eyes and all related structures Neck/C-Spine: COMMON NORMALS: full ROM, no lymphadenopathy, supple and no meningeal signs Chest: COMMONS NORMALS: normal inspection of the chest and normal palpation of entire chest wall Resp: COMMON NORMALS: normal respiratory effort and clear to auscultation bilaterally AUSCULTATION: clear to auscultation bilaterally Cardio: COMMON NORMALS: regular rate and regular rhythm RATE: regular rate RHYTHM: regular rhythm Extremity: COMMON NORMALS: normal to inspection, no joint enlargement, no clubbing, cyanosis or edema, no calf tenderness and no pedal edema GENERAL: Yes normal exam except as noted Neuro: COMMON NORMALS: patient oriented x3 SENSORIUM/ORIENTATION: Yes alert MENINGEAL SIGNS: Yes no meningeal signs Skin: COMMON NORMALS: no rashes or lesions noted GENERAL SKIN EXAM: no rashes or lesions noted Course Vital Signs: Vital signs: Vital Signs Temperature 98.4 F 07/31/23 23:23 Pulse Rate 64 07/31/23 23:23 Respiratory Rate 18 07/31/23 23:23 Blood Pressure 155/84 07/31/23 23:23 Pulse Oximetry 96 07/31/23 23:23 Oxygen Delivery Me thod Room Air 07/31/23 23:23 MDM - URI/Sore Throat Medical Decision Making Patient arrives in no acute distress with stable vitals. Her CXR is normal. Patient will be treated for bronchitis with antibiotics and steroids given her comorbidities/COPD. She states she has a follow-up appointment with primary care tomorrow. Lab Data Radiology Impressions Chest X-Ray 07/31/23 23:41 IMPRESSION: No acute findings. All radiology interpretation(s) finalized by discharge Discharge Plan Discharge Patient Disposition: Home Clinical Impression: Bronchitis Condition: Stable Prescriptions: New levofloxacin 500 mg tablet 500 mg PO DAILY 7 Days Qty: 7 0RF Medrol (Samm) 4 mg tablets,dose pack See Rx Instructions .ROUTE .COMPLEX Qty: 21 0RF Rx Instructions: orally per package directions No Action baclofen 20 mg tablet 20 mg PO TID PRN (Reason: muscle pain) Qty: 30 0RF albuterol sulfate [Ventolin HFA] 90 mcg/actuation HFA aerosol inhaler See Rx Instructions .ROUTE .COMPLEX Qty: 36 6RF Dose Instruction: INHALE TWO PUFFS BY MOUTH EVERY 6 HOURS As Needed FOR shortness of breath OR wheezing Rx Instructions: INHALE TWO PUFFS BY MOUTH EVERY 6 HOURS As Needed FOR shortness of breath OR wheezing hydrocodone-acetaminophen 10-325 mg tablet 1 tab PO Q8H PRN (Reason: pain) 10 Days Qty: 30 0RF digoxin 125 mcg (0.125 mg) tablet See Rx Instructions .ROUTE .COMPLEX Qty: 90 0RF Dose Instruction: Take 1 tablet by mouth once daily Rx Instructions: Take 1 tablet by mouth once daily amiodarone 200 mg tablet 200 mg PO DAILY Qty: 90 0RF furosemide 40 mg tablet 40 mg PO BID Qty: 180 0RF metoprolol tartrate 50 mg tablet 25 mg PO BID Qty: 90 0RF Xarelto 20 mg tablet 20 mg PO DAILY Qty: 90 0RF spironolactone 25 mg tablet 25 mg PO DAILY Qty: 90 0RF Mucinex D 400 MG 400 mg PO BID acetaminophen [Tylenol Extra Strength] 500 mg Tablet 500 mg PO Q6H PRN (Reason: Pain) Discharge Orders: Discharge ED (Routine); Ordered 08/01/23 Ordered By: Rose Gomes Referrals: Noemi Osman MD [Primary Care Provider] - Activity Restrictions/Additional Instructions: Follow up with primary care tomorrow as scheduled. Coding Level of Care Code ED Genetic Scientist for Carol Phelps
--- NOTE | 2023-07-31 23:41 | XRR_ITS ---
PROCEDURE INFORMATION: Exam: XR Chest Exam date and time: 07/31/2023 11:42 PM Age: 63 years old Clinical indication: Cough and other: Congestion; Additional info: Cough, congestion TECHNIQUE: Imaging protocol: Radiologic exam of the chest. Views: 1 view. COMPARISON: CR XR chest 1V portable [id number] 10/03/2020 4:27 PM FINDINGS: Limitations: Evaluation limited by patient body habitus. Lungs: No consolidation, mass, or pulmonary edema. Pleural spaces: No pneumothorax or obvious pleural effusion. Heart/Mediastinum: Cardiomediastinal silhouette is stable and unremarkable. Bones/joints: No acute osseous abnormality. XR/XR chest 1V portable [id number] IMPRESSION: No acute findings.
[2023-08-01] MEDS: levoFLOXacin 500 mg Tablet PO (00:54)
[2023-08-01] MEDS: dexamethasone 10 mg/mL INJ 8 MG IM (00:54)
[2023-08-01 00:55] VITALS: BP 154/70; PULSE 78; RESP 18; O2SAT 97
== END 2023-08-01 00:55 | disposition home or self-care (01) ==
PROVIDERS: Emergency Provider Physician Assistant; PCP Family Medicine
DX: J44.89 Other specified chronic obstructive pulmonary disease (principal); J40 Bronchitis, not specified as acute or chronic; I50.9 Heart failure, unspecified; F17.210 Nicotine dependence, cigarettes, uncomplicated; Z79.01 Long term (current) use of anticoagulants
CPT/HCPCS: 71045; 96372; 99284; J1100

== ENCOUNTER → 2023-10-09 15:04 | Outpatient (BNVA) | payer MEDICARE, SELFPAY | PROVIDERS: PCP Family Medicine; Visit Provider Internal Medicine | DX: I48.91 Unspecified atrial fibrillation (principal); I48.92 Unspecified atrial flutter; Z79.01 Long term (current) use of anticoagulants; Z72.0 Tobacco use; J44.9 Chronic obstructive pulmonary disease, unspecified | CPT/HCPCS: 99214 ==

== ENCOUNTER → 2024-05-15 10:44 | Outpatient (BNVA) | payer MEDICARE, SELFPAY | PROVIDERS: PCP Family Medicine; Visit Provider Internal Medicine Cardiovascular Disease | DX: I48.91 Unspecified atrial fibrillation (principal); I48.92 Unspecified atrial flutter; Z72.0 Tobacco use; Z79.01 Long term (current) use of anticoagulants; J44.9 Chronic obstructive pulmonary disease, unspecified | CPT/HCPCS: 99213 ==

== ENCOUNTER → 2024-12-19 16:19 | Outpatient (BNVA) | payer MEDICARE, SELFPAY | PROVIDERS: PCP Family Medicine; Visit Provider Internal Medicine | DX: I48.91 Unspecified atrial fibrillation (principal); I48.92 Unspecified atrial flutter; Z72.0 Tobacco use; Z79.01 Long term (current) use of anticoagulants; J44.9 Chronic obstructive pulmonary disease, unspecified | CPT/HCPCS: 99214 ==

== ENCOUNTER 2025-03-03 11:10 | Outpatient (CLI) | payer MEDICARE, SELFPAY ==
--- NOTE | 2025-03-03 11:15 | USCV_ITS ---
Tiarra Piper Age: 64 Gender: F : 1960 Exam Date: 03/03/2025 11:40 Ordering Phys: Sree Warren M.D ([email or web address]) Technologist: KAIA Exam Location: [facility] – [place] Indication: SoB BP: 100 / 60 HR: 63 Rhythm: Sinus Technical Quality: Adequate MEASUREMENTS (Male / Female) Normal Values 2D ECHO LV Diastolic Diameter PLAX 4.8 cm 4.2 - 5.9 / 3.9 - 5.3 cm IVS Diastolic Thickness 0.7 cm 0.6 - 1.0 / 0.6 - 0.9 cm IVS Systolic Thickness 1.6 cm LVPW Diastolic Thickness 0.9 cm 0.6 - 1.0 / 0.6 - 0.9 cm LVPW Systolic Thickness 1.2 cm LVOT Diameter 1.9 cm LV Ejection Fraction 2D Teich 61.0 % LV Ejection Fraction MOD 4C 63.1 % LV Ejection Fraction MOD 2C 66.9 % LV Ejection Fraction 2C AL 67.1 % LA Diameter 3.1 cm RA Systolic Volume 4C AL 41.6 ml RA Systolic Volume 4C MOD 39.8 ml LA Sys Volume AL 51.0 cm cubed LA Sys Volume Index AL 23.5 cm cubed/m squared Aorta at Sinotubular Diameter 2.1 cm IVC Diameter 1.9 cm M-MODE LA Ao Ratio MM 1.5 AV Cusp Separation MM 1.3 cm DOPPLER AV Peak Velocity 98.0 cm/s LVOT Peak Velocity 81.0 cm/s AV Area Cont Eq vti 2.6 cm squared AV Area Cont Eq pk 2.4 cm squared MV Peak Velocity 107.0 cm/s MV Area PHT 3.7 cm squared Mitral E to A Ratio 1.2 TR Peak Velocity 95.0 cm/s TR Peak Gradient 3.6 mmHg TV Peak E Velocity 75.0 cm/s PV Peak Velocity 85.0 cm/s FINDINGS Left Ventricle Left ventricle is normal in size. LV systolic function is normal with EF of 60-65%. No regional wall motion abnormalities seen. Right Ventricle Normal in size and function Right Atrium Normal in size Left Atrium Normal in size Mitral Valve Structurally normal mitral valve. Mild mitral regurgitation Aortic Valve Structurally normal aortic valve. No significant stenosis or regurgitation Tricuspid Valve Insufficient TR jet to calculate RVSP Pulmonic Valve Not well visualized Pericardium Normal Aorta Normal in size IVC Appears to be normal CONCLUSIONS LV systolic function is normal with EF of 55-60% Mild mitral regurgitation Sree Warren MD (Electronically Signed) Final Date: 09 Mar 2025 14:00 S
== END 2025-03-03 11:11 | disposition home or self-care (01) ==
LOC: RAD 11:13
PROVIDERS: PCP Family Medicine; Visit Provider Internal Medicine
DX: R06.02 Shortness of breath (principal); I34.0 Nonrheumatic mitral (valve) insufficiency
CPT/HCPCS: 93306

== ENCOUNTER 2025-04-07 15:16 | Emergency (ER) | payer MEDICARE, SELFPAY ==
[2025-04-07 15:22] VITALS: BP 96/63; PULSE 99; RESP 17; TEMP 37.1; O2SAT 98; BMI 32.8
--- NOTE | 2025-04-07 19:53 | W.ED.HA ---
HPI - Headache General: Chief Complaint: Headache Stated Complaint: flu like symptoms x 1 week Time Seen by Provider: 04/07/25 19:07 History of Present Illness: 64-year-old female with history of atrial fibrillation on Xarelto and amiodarone, Lasix, tobacco use, that presents to the ER due to 1 week of multiple complaints, mainly headache. Patient was seen at her primary care physician last Monday, 5 days ago, and given amoxicillin. She states that she feels her head has shooting pain behind her eyes in the front of her forehead. She has difficulty with walking. She complains of dysuria. She complains of nausea. No change in baseline shortness of breath. She states she has flulike symptoms, difficulty with ambulation, and confusion. She is review of systems positive. Associated symptoms: Reports lightheadedness, malaise, nausea, pre-syncope and vomiting Related Data Home Medications ?Medication ?Instructions ?Recorded ?Confirmed Mucinex D 400 mg PO BID 11/04/19 04/04/25 acetaminophen 500 mg tablet 500 mg PO Q6H PRN Pain 02/20/20 04/04/25 (Tylenol Extra Strength) Previous Rx's ?Medication ?Instructions ?Recorded baclofen 20 mg tablet 20 mg PO TID PRN muscle pain #30 07/11/22 tabs hydrocodone 10 mg-acetaminophen 1 tab PO Q8H PRN pain 10 days #30 05/17/23 325 mg tablet tabs amiodarone 200 mg tablet 200 mg PO DAILY #90 tabs 05/15/24 digoxin 125 mcg (0.125 mg) tablet See Rx Instructions .Route 05/15/24 .COMPLEX #90 tabs furosemide 40 mg tablet 40 mg PO BID #180 tabs 05/15/24 metoprolol tartrate 50 mg tablet 25 mg (1/2 x 50 mg) PO BID #90 tabs 05/15/24 rivaroxaban 20 mg tablet (Xarelto) 20 mg PO DAILY #90 tabs 05/15/24 spironolactone 25 mg tablet 25 mg PO DAILY #90 tabs 05/15/24 albuterol sulfate 90 mcg/actuation See Rx Instructions .Route 01/01/25 aerosol inhaler (Ventolin HFA) .COMPLEX #17 grams amoxicillin 875 mg tablet 875 mg PO BID 10 days #20 tabs 04/04/25 ondansetron 4 mg disintegrating 4 mg PO TID PRN nausea and 04/07/25 tablet vomiting 4 days #10 tabs Allergies Allergy/AdvReac Type Severity Reaction Status Date / Time No Known Allergies Allergy Verified 04/04/25 08:09 Review of Systems Const: Reports: change in appetite, fatigue and malaise Eyes: Reports: blurry vision, photophobia and eye discomfort ENMT: Reports: disequilibrium Card: Reports: lightheadedness and pre-syncope Resp: Reports: dyspnea (chronic) and non-productive cough GI: Reports: nausea, vomiting and diarrhea : Reports: difficulty voiding, urinary frequency and urinary urgency Musc: Reports: neck pain, joint pain and limited range of motion Skin/Breast: Reports: photosensitivity and skin pain Neuro: Reports: headache(s) and dizziness; Denies: numbness in extremities Psych: Reports: anxiety; Denies: depression PFS ED PFSH: Medical History Anticoagulation adequate with anticoagulant therapy Xarelto Tobacco abuse COPD (chronic obstructive pulmonary disease) Atrial fibrillation and flutter Congestive heart failure Surgical History History of arthroplasty of right hip Social History Smoking and tobacco/nicotine status: current every day tobacco/nicotine user cigarettes Packs smoked per day: 0.5 Years cigarettes smoked: 40 Second hand smoke exposure: No Alcohol intake: current Alcohol intake frequency: holidays/special occasions only Substance/Drug Use: never Lives independently: Yes Household members: none Marital status: / service: No Current occupational status: disabled Current gender identity: Female Special freddy needs: No Physical Exam Const: COMMON NORMALS: no acute distress, average body habitus, patient oriented x3, no limitations and alert GENERAL APPEARANCE: cooperative, anxious and disheveled ORIENTATION/CONSCIOUSNESS: Yes awake, Yes oriented to person, Yes oriented to place and Yes oriented to time HENMT: COMMON NORMALS: normocephalic, atraumatic, hearing grossly normal bilaterally and TM's normal bilaterally HEAD & SCALP: normocephalic and atraumatic FACE & SINUS: normal facial exam TYMPANIC MEMBRANE: TM's normal bilaterally MOUTH: Normal oral and palatal mucosa present Eye: COMMON NORMALS: Equal, round and reactive pupils present, EOMs intact bilaterally, conjunctivae normal and no scleral icterus GENERAL EYE: appearance normal, both eyes and all related structures and normal light reflex VISUAL ACUITY: Yes acuity normal CONJUNCTIVA: Yes conjunctivae normal PUPIL: Yes Equal, round and reactive pupils present DIRECT OPHTHALMOSCOPY: Yes normal light reflex Neck/C-Spine: COMMON NORMALS: full ROM and no lymphadenopathy GENERAL: Yes normal visual inspection and Yes trachea midline Lymph: LYMPHATIC: no lymphadenopathy noted Resp: COMMON NORMALS: normal respiratory effort and clear to auscultation bilaterally AUSCULTATION: clear to auscultation bilaterally Cardio: COMMON NORMALS: regular rate, regular rhythm, S1 normal heart sound present, S2 normal heart sound present and Peripheral pulses 2+ throughout RATE: regular rate RHYTHM: regular rhythm HEART SOUNDS: S1 normal heart sound present, S2 normal heart sound present and Murmur heart sound present (mid to late) systolic PERIPHERAL PULSES: Peripheral pulses 2+ throughout GI: COMMON NORMALS: Normal to inspection, nondistended, normoactive bowel sounds present, Soft to palpation and non-tender INSPECTION: Yes normal to inspection AUSCULTATION: Yes normoactive bowel sounds PALPATION: Yes Soft to palpation PERCUSSION: normal to percussion : COMMON NORMALS: Yes no CVA tenderness BLADDER/KIDNEY EXAM: Yes no CVA tenderness Back/Pelvis: COMMON NORMALS: no CVA tenderness Extremity: COMMON NORMALS: normal to inspection, full ROM and capillary refill normal Neuro: COMMON NORMALS: patient oriented x3 SENSORIUM/ORIENTATION: Yes alert, Yes oriented to person, Yes oriented to place and Yes oriented to time SPEECH: speech normal Psych: THOUGHT CONTENT: Yes Normal thought content present MEMORY/COGNITION: Yes memory grossly intact INSIGHT: Good insight present (Psych) Skin: COMMON NORMALS: no rashes or lesions noted GENERAL SKIN EXAM: no rashes or lesions noted Course Reevaluation(s): Reevaluation #1: Improved by 50%. Reevaluation #2: Headache improved after morphine. IV fluids improved as well. Vital Signs: Vital signs: Vital Signs Temperature 98.8 F 04/07/25 15:22 Pulse Rate 77 04/07/25 21:38 Respiratory Rate 16 04/07/25 21:38 Blood Pressure 111/55 04/07/25 21:38 Pulse Oximetry 93 04/07/25 21:38 Oxygen Delivery Me thod Room Air 04/07/25 20:01 MDM - Headache Medical Decision Making Patient is a 62-year-old female with review of systems positive. She feels improved after IV fluids. Her sodium is noted at 127 which I suspect is hypovolemia. No additional differentials ruled in. Patient states she feels about 50% better than when she came in the emergency room. She will follow-up with labs this week with her primary doctor and hold her Lasix. During her course of care, patient did not produce urine here, however urine analysis is not necessary since patient did not have complaints of dysuria just lack of urine production. Lab Data 04/07/25 19:47 04/07/25 19:47 Laboratory Results WBC 11.61 10^3/uL (3.29-11.43) H 04/07/25 19:47 RBC 5.19 10^6/uL (3.85-5.65) 04/07/25 19:47 Hgb 15.70 g/dL (11.27-16.99) 04/07/25 19:47 Hct 45.1 % (36-47) 04/07/25 19:47 MCV 86.9 fl (85-98) 04/07/25 19:47 MCH 30.3 pg (27-33) 04/07/25 19:47 MCHC 34.8 g/dL (30-55) 04/07/25 19:47 RDW 14.3 % (12.1-15.1) 04/07/25 19:47 Plt Count 230 10^3/cmm (157-399) 04/07/25 19:47 MPV 10.1 fL (7.4-10.4) 04/07/25 19:47 Neut % (Auto) 73.3 % 04/07/25 19:47 Lymph % (Auto) 11.2 % 04/07/25 19:47 [place] % (Auto) 14.5 % 04/07/25 19:47 Eos % (Auto) 0.1 % 04/07/25 19:47 Baso % (Auto) 0.5 % 04/07/25 19:47 Neut # (Auto) 8.51 10^3/uL (1.8-7.7) H 04/07/25 19:47 Lymph # (Auto) 1.3 10^3/uL (0.8-4.8) 04/07/25 19:47 [place] # (Auto) 1.7 10^3/uL (0.2-0.9) H 04/07/25 19:47 Eos # (Auto) 0.0 10^3/uL (0.0-0.8) 04/07/25 19:47 Baso # (Auto) 0.1 10^3/uL (0.0-0.1) 04/07/25 19:47 Nucleated RBC % (auto) 0 % 04/07/25 19:47 Nucleated RBCs # 0.0 /100WBC 04/07/25 19:47 Sodium 127 mmol/L (136-145) L 04/07/25 19:47 Potassium 3.8 mmol/L (3.5-5.1) 04/07/25 19:47 Chloride 91 mmol/L (98-107) L 04/07/25 19:47 Carbon Dioxide 19 mmol/L (22-29) L 04/07/25 19:47 Anion Gap 20.8 (5-19) H 04/07/25 19:47 BUN 10 mg/dL (8-23) 04/07/25 19:47 Creatinine 0.9 mg/dL (0.5-0.9) 04/07/25 19:47 GFR Calculation 63.4 mL/min (90-130) L 04/07/25 19:47 Glucose 96 mg/dL (65-115) 04/07/25 19:47 Calculated Osmolality 263 mOsm/kg (285-295) L 04/07/25 19:47 Calcium 8.5 mg/dL (8.5-10.5) 04/07/25 19:47 Total Bilirubin 0.3 mg/dL (0.15-1.2) 04/07/25 19:47 AST 12 U/L (0-32) 04/07/25 19:47 ALT 8 U/L (0-33) 04/07/25 19:47 Alkaline Phosphatase 74 U/L (35-105) 04/07/25 19:47 Total Protein 7.4 g/dL (6.6-8.7) 04/07/25 19:47 Albumin 3.4 g/dL (3.5-5.2) L 04/07/25 19:47 Globulin 4.0 g/dL (1.3-4.6) 04/07/25 19:47 Digoxin 1.1 ng/mL (0.6-1.2) 04/07/25 19:47 Influenza A (PCR) Negative (Negative) 04/07/25 19:16 Influenza Type B (PCR) Negative (Negative) 04/07/25 19:16 RSV (PCR) Negative (Negative) 04/07/25 19:16 SARS-CoV-2 (PCR) Negative (Negative) 04/07/25 19:16 No radiology studies performed this visit Discharge Plan Discharge Patient Disposition: Home Clinical Impression: Acute hyponatremia Migraine Qualifiers: Migraine type: migraine (< 15 days per month) with aura Status migrainosus presence: with status migrainosus Intractability: not intractable Qualified Code(s): G43.101 - Migraine with aura, not intractable, with status migrainosus Condition: Stable Prescriptions: New ondansetron 4 mg tablet,disintegrating 4 mg PO TID PRN (Reason: nausea and vomiting) 4 Days Qty: 10 0RF No Action baclofen 20 mg tablet 20 mg PO TID PRN (Reason: muscle pain) Qty: 30 0RF hydrocodone-acetaminophen 10-325 mg tablet 1 tab PO Q8H PRN (Reason: pain) 10 Days Qty: 30 0RF amiodarone 200 mg tablet 200 mg PO DAILY Qty: 90 3RF digoxin 125 mcg (0.125 mg) tablet See Rx Instructions .ROUTE .COMPLEX Qty: 90 3RF Dose Instruction: Take 1 tablet by mouth once daily Rx Instructions: Take 1 tablet by mouth once daily furosemide 40 mg tablet 40 mg PO BID Qty: 180 3RF metoprolol tartrate 50 mg tablet 25 mg PO BID Qty: 90 3RF Xarelto 20 mg tablet 20 mg PO DAILY Qty: 90 3RF spironolactone 25 mg tablet 25 mg PO DAILY Qty: 90 3RF albuterol sulfate [Ventolin HFA] 90 mcg/actuation HFA aerosol inhaler See Rx Instructions .ROUTE .COMPLEX Qty: 17 11RF Dose Instruction: INHALE TWO PUFFS BY MOUTH EVERY 6 HOURS As Needed FOR shortness of breath OR wheezing Rx Instructions: INHALE TWO PUFFS BY MOUTH EVERY 6 HOURS As Needed FOR shortness of breath OR wheezing amoxicillin 875 mg tablet 875 mg PO BID 10 Days Qty: 20 0RF Mucinex D 400 MG 400 mg PO BID acetaminophen [Tylenol Extra Strength] 500 mg Tablet 500 mg PO Q6H PRN (Reason: Pain) Discharge Orders: Discharge ED (Routine); Ordered 04/07/25 Ordered By: Gabriela Ortiz Referrals: Hanny Manriquez FNP-C [Primary Care Provider, Family Practice] Discharge Diet: Full LIquid Discharge Activity: Increase activity as tolerated Patient Instructions: Acute Headache (ED) Activity Restrictions/Additional Instructions: Hold your furosemide/Lasix until follow-up labs this week Follow-up with your doctor in [place] this week?obtain labs Return to ED for further issues Full liquid diet, then advance as you tolerate to a bland diet this week. Print Language: Lao Coding Level of Care Code ED Supervisor [employer] for Carol Phelps
[2025-04-07] MEDS: ondansetron 2 mg/ML SDV 2 mL 4 MG IVP ×2 (19:54→21:34)
[2025-04-07] MEDS: ketorolac 30 mg/mL INJ 10 MG IVP (19:54)
[2025-04-07] MEDS: diphenhydrAMINE 50 mg/mL SDV 1mL 25 MG IVP (19:55)
[2025-04-07 19:57] LABS: Influenza A NEGATIVE (Negative); Influenza B NEGATIVE (Negative); Respiratory Syncytial Virus Ce NEGATIVE (Negative); SARS-CoV-2 PCR NEGATIVE (Negative)
[2025-04-07] MEDS: pantoprazole 40 mg SDV 80 MG IVP (19:57)
[2025-04-07] MEDS: sodium chloride 0.9% 1,000 ML 999 ML IV ×2 (19:57→21:34)
[2025-04-07 20:01] VITALS: BP 108/59; PULSE 128; O2SAT 92
[2025-04-07 20:03] LABS: Basophils # 0.1 10^3/uL (0.0-0.1); Basophils % 0.5 %; Eosinophils % 0.1 %; Hematocrit 45.1 % (36-47); Lymphocytes # 1.3 10^3/uL (0.8-4.8); Lymphocytes % 11.2 %; Mean Corpuscular HGB Conc 34.8 g/dL (30-55); Mean Corpuscular Hemoglobin 30.3 pg (27-33); Mean Corpuscular Volume 86.9 fl (85-98); Mean Platelet Volume 10.1 fL (7.4-10.4); Monocytes # 1.7 10^3/uL (0.2-0.9); Monocytes % 14.5 %; Neutrophils # 8.51 10^3/uL (1.8-7.7); Neutrophils % 73.3 %; Nucleated Red Blood Cells % 0 %; Platelet Count 230 10^3/cmm (157-399); Red Blood Count 5.19 10^6/uL (3.85-5.65); Red Cell Distribution Width 14.3 % (12.1-15.1); White Blood Count 11.61 10^3/uL (3.29-11.43)
[2025-04-07 20:24] LABS: Alanine Aminotransferase 8 U/L (0-33); Albumin Level 3.4 g/dL (3.5-5.2); Alkaline Phosphatase 74 U/L (35-105); Anion Gap 20.8 (5-19); Aspartate Amino Transferase 12 U/L (0-32); Blood Urea Nitrogen 10 mg/dL (8-23); Calcium 8.5 mg/dL (8.5-10.5); Carbon Dioxide 19 mmol/L (22-29); Chloride 91 mmol/L (98-107); Creatinine Clr Calc Pharmacy 76.7991; Glomerular Filtration Rate 63.4 mL/min (90-130); Glucose 96 mg/dL (65-115); Osmolality Calculated 263 mOsm/kg (285-295); Potassium 3.8 mmol/L (3.5-5.1); Sodium 127 mmol/L (136-145); Total Bilirubin 0.3 mg/dL (0.15-1.2); Total Protein 7.4 g/dL (6.6-8.7)
[2025-04-07 21:30] LABS: Digoxin 1.1 ng/mL (0.6-1.2)
[2025-04-07] MEDS: morphine 4 mg/mL SDV 1 mL 2 MG IVP (21:34)
[2025-04-07 21:38] VITALS: BP 111/55; PULSE 77; RESP 16; O2SAT 93
[2025-04-07 23:00] VITALS: BP 106/48; PULSE 63; RESP 16; O2SAT 93
== END 2025-04-07 23:11 | disposition home or self-care (01) ==
PROVIDERS: Emergency Medicine; Emergency Provider Physician Assistant; PCP Nurse Practitioner Family
DX: E87.1 Hypo-osmolality and hyponatremia (principal); G43.101 Migraine with aura, not intractable, with status migrainosus; Z11.52 Encounter for screening for COVID-19; F17.210 Nicotine dependence, cigarettes, uncomplicated; J44.9 Chronic obstructive pulmonary disease, unspecified; I50.9 Heart failure, unspecified
CPT/HCPCS: 80053; 80162; 85025; 87637; 96361; 96374; 96375; 96376; 99284; J1200; J1885; J2270; J2405; J2470; J7030

== ENCOUNTER 2025-04-09 22:28 | Emergency (ER) | payer MEDICARE, SELFPAY ==
[2025-04-09 22:29] VITALS: BP 108/64; PULSE 82; RESP 16; TEMP 38.4; O2SAT 98; BMI 32.8
--- NOTE | 2025-04-09 22:36 | CTR_ITS ---
PROCEDURE INFORMATION: Exam: CT Head Without Contrast Exam date and time: 04/09/2025 11:05 PM Age: 64 years old Clinical indication: Headache; Other: Sharp stabbing electrical pains RT yazidi TECHNIQUE: Imaging protocol: Computed tomography of the head without contrast. Radiation optimization: All CT scans at this facility use at least one of these dose optimization techniques: automated exposure control; mA and/or kV adjustment per patient size (includes targeted exams where dose is matched to clinical indication); or iterative reconstruction. COMPARISON: CR XR cervical spine 3V* [id number] 09/26/2021 12:59 PM RADIATION DOSE METRICS: Total DLP (mGy-cm): 1184.9 FINDINGS: Brain: Encephalomalacia in the right frontal lobe, from prior insult. No recent infarct, intracranial bleed or mass effect. Cerebral ventricles: No ventriculomegaly. Paranasal sinuses: Mild mucosal disease of bilateral ethmoid air cells. Mastoid air cells: Visualized mastoid air cells are well aerated. Orbital cavities: Post bilateral cataract surgery. Bones: Unremarkable. No acute fracture. Soft tissues: Unremarkable. CT/CT head wo con* [id number] IMPRESSION: No large territorial infarct or intracranial bleed.
[2025-04-09] MEDS: ketorolac 30 mg/mL INJ 15 MG IVP (22:51)
[2025-04-09] MEDS: sodium chloride 0.9% 1,000 ML 999 ML IV (22:52)
--- NOTE | 2025-04-09 22:53 | W.ED.HA ---
HPI - Headache General: Chief Complaint: Headache Stated Complaint: headache Time Seen by Provider: 04/09/25 22:31 History of Present Illness: 64-year-old female with a history of atrial fibrillation with anticoagulation on Eliquis, COPD and congestive heart failure who presents emergency room with continued right sided headache. She has never had headaches in the past. This has been going on for about a week. She was initially seen in clinic and had told the provider she thought she had sinusitis and was started on amoxicillin. She was seen again here 2 days ago and is thought it might be a migraine and so she was treated for that and had improved some but it has come back. She says there is a constant pulsing pain in her right temporal area. Photophobia. She said she has had some mild confusion over the last few days. Related Data Home Medications ?Medication ?Instructions ?Recorded ?Confirmed Mucinex D 400 mg PO BID 11/04/19 04/04/25 acetaminophen 500 mg tablet 500 mg PO Q6H PRN Pain 02/20/20 04/04/25 (Tylenol Extra Strength) Previous Rx's ?Medication ?Instructions ?Recorded baclofen 20 mg tablet 20 mg PO TID PRN muscle pain #30 07/11/22 tabs hydrocodone 10 mg-acetaminophen 1 tab PO Q8H PRN pain 10 days #30 05/17/23 325 mg tablet tabs amiodarone 200 mg tablet 200 mg PO DAILY #90 tabs 05/15/24 digoxin 125 mcg (0.125 mg) tablet See Rx Instructions .Route 05/15/24 .COMPLEX #90 tabs furosemide 40 mg tablet 40 mg PO BID #180 tabs 05/15/24 metoprolol tartrate 50 mg tablet 25 mg (1/2 x 50 mg) PO BID #90 tabs 05/15/24 rivaroxaban 20 mg tablet (Xarelto) 20 mg PO DAILY #90 tabs 05/15/24 spironolactone 25 mg tablet 25 mg PO DAILY #90 tabs 05/15/24 albuterol sulfate 90 mcg/actuation See Rx Instructions .Route 01/01/25 aerosol inhaler (Ventolin HFA) .COMPLEX #17 grams amoxicillin 875 mg tablet 875 mg PO BID 10 days #20 tabs 04/04/25 ondansetron 4 mg disintegrating 4 mg PO TID PRN nausea and 04/07/25 tablet vomiting 4 days #10 tabs Allergies Allergy/AdvReac Type Severity Reaction Status Date / Time No Known Allergies Allergy Verified 04/09/25 22:30 Review of Systems Narrative: Constitutional symptoms: Negative except as documented in HPI. Skin symptoms: Negative except as documented in HPI. Eye symptoms: Negative except as documented in HPI. ENMT symptoms: Negative except as documented in HPI. Respiratory symptoms: Negative except as documented in HPI. Cardiovascular symptoms: Negative except as documented in HPI. Gastrointestinal symptoms: Negative except as documented in HPI. Genitourinary symptoms: Negative except as documented in HPI. Musculoskeletal symptoms: Negative except as documented in HPI. Neurologic symptoms: Negative except as documented in HPI. Psychiatric symptoms: Negative except as documented in HPI. Endocrine symptoms: Negative except as documented in HPI. PFSH ED PFSH: Medical History Anticoagulation adequate with anticoagulant therapy Xarelto Tobacco abuse COPD (chronic obstructive pulmonary disease) Atrial fibrillation and flutter Congestive heart failure Surgical History History of arthroplasty of right hip Social History Smoking and tobacco/nicotine status: current every day tobacco/nicotine user cigarettes Packs smoked per day: 0.5 Years cigarettes smoked: 40 Second hand smoke exposure: No Alcohol intake: current Alcohol intake frequency: holidays/special occasions only Substance/Drug Use: never Lives independently: Yes Household members: none Marital status: / service: No Current occupational status: disabled Current gender identity: Female Special freddy needs: No Physical Exam Narrative: EXAM NARRATIVE: General: Alert, no acute distress. Skin: Warm, dry. Head: Normocephalic, atraumatic. Neck: Supple, trachea midline. Eye: Extraocular movements are intact. Ears, nose, mouth and throat: Tacky oral mucosa Cardiovascular: Regular, Normal peripheral perfusion. Respiratory: Lungs are clear to auscultation, respirations are non-labored, breath sounds are equal, Symmetrical chest wall expansion. Gastrointestinal: Soft, Nontender, Non distended Musculoskeletal: Normal ROM, no deformity. Neurological: Alert and oriented, No focal neurological deficit observed. Psychiatric: Cooperative, appropriate mood & affect. Course Vital Signs: Vital signs: Vital Signs Temperature 99.2 F 04/09/25 23:35 Pulse Rate 72 04/10/25 00:35 Respiratory Rate 16 04/10/25 00:35 Blood Pressure 115/61 04/10/25 00:35 Pulse Oximetry 92 04/10/25 00:35 Oxygen Delivery Me thod Room Air 04/10/25 00:35 MDM - Headache Medical Decision Making Medical decision making: Differential diagnosis for this patient presenting with severe headache including but not limited to and based on the above HPI, review of systems and physical exam: Temporal arteritis. Trigeminal neuralgia. Intracranial hemorrhage, stroke, migraine, cluster headache, infections such as influenza, covid Orders placed to evaluate differential diagnosis based on the above differential, HPI and physical exam CT head: No acute intracranial process. no intracranial hemorrhage, no evidence of infarct. no evidence of acute fracture.This was reviewed and interpreted by myself the ER physician. Lab Review: Laboratory results were reviewed and interpreted by myself the emergency room physician. No leukocytosis. However patient does have a extremely elevated inflammatory markers with a ESR of 69 and a CRP of 272. Platelets are normal. Renal function is normal. Sodium is still little low at 129. Urinalysis is negative for infection. Consultation: I spoke with Dr. Mackenzie with neurology. I have concerned this patient might have temporal arteritis. General surgery does not do biopsies here. I spoke with ophthalmology and they recommend Dr. Valero. Dr. Mackenzie will see the patient in clinic this morning and will talk with Dr. Valero about possible temporal artery biopsy. She has fever. New onset headache that is different than normal. Elevated inflammatory markers. This definitely is an indication for testing for giant cell arteritis. I reviewed the patient's medical record. Reexamination: Patient remained stable. No increased work of breathing. No altered mental status. No focal motor deficits. Headache is somewhat improved. We have discussed my concerns and she will follow-up with Dr. Mackenzie this morning. Assessment and plan: New onset headache Fever Concern for giant cell arteritis ? IV fluids. IV Toradol. Depacon and Ativan. - Discharged home - Discussed plan with patient. Answered any questions. - Evaluation and treatment of this problem were appropriate in the emergency setting. Lab Data 04/09/25 22:40 04/09/25 22:[address] 04/09/25 22:36 IMPRESSION: No large territorial infarct or intracranial bleed. Laboratory Results WBC 7.24 10^3/uL (3.29-11.43) 04/09/25 22:40 RBC 4.48 10^6/uL (3.85-5.65) 04/09/25 22:40 Hgb 13.70 g/dL (11.27-16.99) 04/09/25 22:40 Hct 40.0 % (36-47) 04/09/25 22:40 MCV 89.3 fl (85-98) 04/09/25 22:40 MCH 30.6 pg (27-33) 04/09/25 22:40 MCHC 34.3 g/dL (30-55) 04/09/25 22:40 RDW 14.3 % (12.1-15.1) 04/09/25 22:40 Plt Count 249 10^3/cmm (157-399) 04/09/25 22:40 MPV 10.7 fL (7.4-10.4) H 04/09/25 22:40 Neut % (Auto) 76.0 % 04/09/25 22:40 Lymph % (Auto) 12.7 % 04/09/25 22:40 [place] % (Auto) 9.4 % 04/09/25 22:40 Eos % (Auto) 0.6 % 04/09/25 22:40 Baso % (Auto) 0.7 % 04/09/25 22:40 Neut # (Auto) 5.51 10^3/uL (1.8-7.7) 04/09/25 22:40 Lymph # (Auto) 0.9 10^3/uL (0.8-4.8) 04/09/25 22:40 [place] # (Auto) 0.7 10^3/uL (0.2-0.9) 04/09/25 22:40 Eos # (Auto) 0.0 10^3/uL (0.0-0.8) 04/09/25 22:40 Baso # (Auto) 0.1 10^3/uL (0.0-0.1) 04/09/25 22:40 Nucleated RBC % (auto) 0 % 04/09/25 22:40 Nucleated RBCs # 0.0 /100WBC 04/09/25 22:40 ESR 69 mm/hr (0-15) H 04/09/25 22:40 Sodium 129 mmol/L (136-145) L 04/09/25 22:40 Potassium 3.8 mmol/L (3.5-5.1) 04/09/25 22:40 Chloride 94 mmol/L (98-107) L 04/09/25 22:40 Carbon Dioxide 23 mmol/L (22-29) 04/09/25 22:40 Anion Gap 15.8 (5-19) 04/09/25 22:40 BUN 7 mg/dL (8-23) L 04/09/25 22:40 Creatinine 0.8 mg/dL (0.5-0.9) 04/09/25 22:40 GFR Calculation 72.7 mL/min (90-130) L 04/09/25 22:40 Glucose 95 mg/dL (65-115) 04/09/25 22:40 Calculated Osmolality 266 mOsm/kg (285-295) L 04/09/25 22:40 Lactic Acid 1.3 mmol/L (0.5-2.2) 04/09/25 22:40 Calcium 8.3 mg/dL (8.5-10.5) L 04/09/25 22:40 Total Bilirubin 0.2 mg/dL (0.15-1.2) 04/09/25 22:40 AST 24 U/L (0-32) 04/09/25 22:40 ALT 16 U/L (0-33) 04/09/25 22:40 Alkaline Phosphatase 79 U/L (35-105) 04/09/25 22:40 C-Reactive Protein 272.5 mg/L (0.0-4.9) H 04/09/25 22:40 Total Protein 6.6 g/dL (6.6-8.7) 04/09/25 22:40 Albumin 2.9 g/dL (3.5-5.2) L 04/09/25 22:40 Globulin 3.7 g/dL (1.3-4.6) 04/09/25 22:40 Urine Color Yellow (Yellow) 04/09/25 23:25 Urine Appearance Clear (CLEAR) 04/09/25 23:25 Urine pH 5.0 (5-7) 04/09/25 23:25 Ur Specific [place] 1.007 (1.005-1.030) 04/09/25 23:25 Urine Protein Negative (Negative) 04/09/25 23:25 Urine Glucose (UA) Negative (Normal) 04/09/25 23:25 Urine Ketones Negative (Negative) 04/09/25 23:25 Urine Blood 1+ (Negative) A 04/09/25 23:25 Urine Nitrate Negative (Negative) 04/09/25 23: Urine Bilirubin Negative (Negative) 04/09/25 23:25 Urine Urobilinogen 0.2 mg/dL (Negative) 04/09/25 23:25 Ur Leukocyte Esterase Negative (Negative) 04/09/25 23:25 Urine RBC 0-2 /hpf (0-2) 04/09/25 23:25 Urine WBC 0-5 /hpf (0-5) 04/09/25 23:25 Ur Squamous Epith Cells 0-5 /hpf (0-5) 04/09/25 23:25 Amorphous Sediment Not Reportable 04/09/25 23:25 Urine Bacteria None seen /hpf (NONE) 04/09/25 23: Hyaline Casts 6.17 /lpf 04/09/25 23:25 All radiology interpretation(s) finalized by discharge Discharge Plan Discharge Patient Disposition: Home Clinical Impression: Headache Condition: Stable Prescriptions: No Action baclofen 20 mg tablet 20 mg PO TID PRN (Reason: muscle pain) Qty: 30 0RF hydrocodone-acetaminophen 10-325 mg tablet 1 tab PO Q8H PRN (Reason: pain) 10 Days Qty: 30 0RF amiodarone 200 mg tablet 200 mg PO DAILY Qty: 90 3RF digoxin 125 mcg (0.125 mg) tablet See Rx Instructions .ROUTE .COMPLEX Qty: 90 3RF Dose Instruction: Take 1 tablet by mouth once daily Rx Instructions: Take 1 tablet by mouth once daily furosemide 40 mg tablet 40 mg PO BID Qty: 180 3RF metoprolol tartrate 50 mg tablet 25 mg PO BID Qty: 90 3RF Xarelto 20 mg tablet 20 mg PO DAILY Qty: 90 3RF spironolactone 25 mg tablet 25 mg PO DAILY Qty: 90 3RF albuterol sulfate [Ventolin HFA] 90 mcg/actuation HFA aerosol inhaler See Rx Instructions .ROUTE .COMPLEX Qty: 17 11RF Dose Instruction: INHALE TWO PUFFS BY MOUTH EVERY 6 HOURS As Needed FOR shortness of breath OR wheezing Rx Instructions: INHALE TWO PUFFS BY MOUTH EVERY 6 HOURS As Needed FOR shortness of breath OR wheezing amoxicillin 875 mg tablet 875 mg PO BID 10 Days Qty: 20 0RF Mucinex D 400 MG 400 mg PO BID acetaminophen [Tylenol Extra Strength] 500 mg Tablet 500 mg PO Q6H PRN (Reason: Pain) ondansetron 4 mg tablet,disintegrating 4 mg PO TID PRN (Reason: nausea and vomiting) 4 Days Qty: 10 0RF Discharge Orders: Discharge ED (Routine); Ordered 04/10/25 Ordered By: Alanna Kent Referrals: Concetta Mackenzie MD [Physician, Neurology] - 04/10/25 8:00 am Referral Note: Please go directly to clinic this morning. Hanny Manriquez FNP-C [Primary Care Provider, Family Practice] Discharge Diet: Usual diet Discharge Activity: Increase activity as tolerated Patient Instructions: Opioid Safety, Pain Management Activity Restrictions/Additional Instructions: You need to follow-up with neurology first thing this morning. Go to clinic for workin. Thank you for choosing [facility] for your healthcare needs today. You have been screened and evaluated and felt safe for discharge. Health conditions do change or evolve sometimes and as such it is important that you follow up with your Primary Doctor to be re checked, 3-5 days is a general good time frame for follow up. You are always welcome to return to the ED for re assessment if your symptoms are worsening or you have new concerns Print Language: Belarusian Coding Level of Care Code ED [employer] Billing Analyst for Carol Phelps
[2025-04-09 23:05] LABS: Basophils # 0.1 10^3/uL (0.0-0.1); Basophils % 0.7 %; Eosinophils % 0.6 %; Lymphocytes # 0.9 10^3/uL (0.8-4.8); Lymphocytes % 12.7 %; Mean Corpuscular HGB Conc 34.3 g/dL (30-55); Mean Corpuscular Hemoglobin 30.6 pg (27-33); Mean Corpuscular Volume 89.3 fl (85-98); Mean Platelet Volume 10.7 fL (7.4-10.4); Monocytes # 0.7 10^3/uL (0.2-0.9); Monocytes % 9.4 %; Neutrophils # 5.51 10^3/uL (1.8-7.7); Nucleated Red Blood Cells % 0 %; Platelet Count 249 10^3/cmm (157-399); Red Blood Count 4.48 10^6/uL (3.85-5.65); Red Cell Distribution Width 14.3 % (12.1-15.1); White Blood Count 7.24 10^3/uL (3.29-11.43)
[2025-04-09 23:20] LABS: Erythrocyte Sedimentation Rate 69 mm/hr (0-15)
[2025-04-09 23:25] LABS: Alanine Aminotransferase 16 U/L (0-33); Albumin Level 2.9 g/dL (3.5-5.2); Alkaline Phosphatase 79 U/L (35-105); Anion Gap 15.8 (5-19); Aspartate Amino Transferase 24 U/L (0-32); Blood Urea Nitrogen 7 mg/dL (8-23); C Reactive Protein 272.5 mg/L (0.0-4.9); Calcium 8.3 mg/dL (8.5-10.5); Carbon Dioxide 23 mmol/L (22-29); Chloride 94 mmol/L (98-107); Globulin 3.7 g/dL (1.3-4.6); Glomerular Filtration Rate 72.7 mL/min (90-130); Glucose 95 mg/dL (65-115); Osmolality Calculated 266 mOsm/kg (285-295); Potassium 3.8 mmol/L (3.5-5.1); Sodium 129 mmol/L (136-145); Total Bilirubin 0.2 mg/dL (0.15-1.2); Total Protein 6.6 g/dL (6.6-8.7)
[2025-04-09 23:26] LABS: Lactic Sepsis W/Reflex 1.3 mmol/L (0.5-2.2)
[2025-04-09 23:33] LABS: Bilirubin Urine Negative (Negative); Blood Urine 1+ (Negative); Glucose Urine UA Negative (Normal); Ketones Urine Negative (Negative); Leukocyte Esterase Urine Negative (Negative); Nitrate Urine Negative (Negative); Protein Urine Negative (Negative); Specific Gravity, Urine 1.007 (1.005-1.030); Urine Appearance Clear (CLEAR); Urine Color Yellow (Yellow); Urobilinogen Urine 0.2 mg/dL (Negative)
[2025-04-09 23:35] VITALS: BP 108/59; PULSE 89; RESP 18; TEMP 37.3; O2SAT 93
[2025-04-09 23:38] LABS: Bacteria Urine None Seen /hpf; Hyaline Casts Urine 6.17 /lpf; RBC Urine 0-2 /hpf (0-2); Squamous Epithelial Cell Urine 0-5 /hpf (0-5); WBC Urine 0-5 /hpf (0-5)
[2025-04-10] MEDS: valproic acid inj 500 MG in sodium chloride 0.9% 50 ML 55 MG IV (00:18)
[2025-04-10 00:35] VITALS: BP 115/61; PULSE 72; RESP 16; O2SAT 92
[2025-04-10] MEDS: LORazepam 1 MG/0.5 ML injection (01:29)
[2025-04-10 01:53] VITALS: BP 128/71; PULSE 78; RESP 16; O2SAT 93
== END 2025-04-10 01:58 | disposition home or self-care (01) ==
PROVIDERS: Emergency Provider Emergency Medicine; PCP Nurse Practitioner Family
DX: R51.9 Headache, unspecified (principal); F17.210 Nicotine dependence, cigarettes, uncomplicated; J44.9 Chronic obstructive pulmonary disease, unspecified; I50.9 Heart failure, unspecified; Z79.01 Long term (current) use of anticoagulants
CPT/HCPCS: 36415; 70450; 80053; 81001; 83605; 85025; 85651; 86140; 87040; 96374; 96375; 99285; J1885; J2060; J3490; J7030

== ENCOUNTER → 2025-04-10 08:05 | Outpatient (BNVA) | payer MEDICARE, SELFPAY | PROVIDERS: PCP Nurse Practitioner Family; Referring Provider Emergency Medicine; Visit Provider Specialist | DX: G43.101 Migraine with aura, not intractable, with status migrainosus (principal) | CPT/HCPCS: 96372; 99205 ==

== ENCOUNTER 2025-04-15 10:15 | Oncology outpatient (recurring) (ONCR) | payer MEDICARE, SELFPAY ==
[2025-04-10 12:20] VITALS: BP 156/74; PULSE 91; RESP 18; TEMP 36.4; O2SAT 94
[2025-04-10] MEDS: methylPREDNISolone sod succ 1,000 MG in sodium chloride 0.9% 250 ML 258 MG IV (12:25)
[2025-04-11 10:47] LABS: Appearance CSF CLEAR (CLEAR); Color CSF COLORLESS (COLORLESS); Pathology Referral Yes
[2025-04-11] MEDS: methylPREDNISolone sod succ 1,000 MG in sodium chloride 0.9% 250 ML 258 MG IV (10:49)
[2025-04-11 10:53] LABS: CSF Mononuclear # 0.002 10^3/uL (50-90); Mononuclear WBC CSF % 100 % (50-90); Polynuclear WBC CSF % 0 % (0-10); Red Blood Cell CSF 0 10^3/uL (0-0); White Blood Cell CSF 2 /uL (0-5)
[2025-04-11 11:06] LABS: Erythrocyte Sedimentation Rate 65 mm/hr (0-15)
[2025-04-11 11:08] LABS: Total Protein CSF 29 mg/dL (15-45)
[2025-04-11 11:14] LABS: Glucose CSF 104 mg/dL (40-70)
[2025-04-11 11:27] LABS: C Reactive Protein 221.9 mg/L (0.0-4.9)
[2025-04-11 12:12] VITALS: BP 129/75; PULSE 57; RESP 17; TEMP 35.9; O2SAT 93
[2025-04-12 08:09] LABS: CENTROMERE B ANTIBODY <1.0 NEG AI (<1.0 NEG); JO-1 ANTIBODY <1.0 NEG AI (<1.0 NEG); RNP ANTIBODY <1.0 NEG AI (<1.0 NEG); SCL-70 ANTIBODY <1.0 NEG AI (<1.0 NEG); SJOGREN'S ANTIBODY (SS-A) <1.0 NEG AI (<1.0 NEG); SM ANTIBODY <1.0 NEG AI (<1.0 NEG); SS-B <1.0 NEG AI (<1.0 NEG)
[2025-04-12] MEDS: methylPREDNISolone sod succ 1,000 MG in sodium chloride 0.9% 250 ML 258 MG IV (10:26)
[2025-04-12 10:42] VITALS: BP 118/74; PULSE 91; RESP 18; TEMP 36.9; O2SAT 94
[2025-04-13 05:58] LABS: COMPLEMENT COMPONENT C3C 161 mg/dL (83-193); COMPLEMENT COMPONENT C4C 32 mg/dL (15-57)
[2025-04-13 10:35] VITALS: BP 147/73; PULSE 59; RESP 16; TEMP 36.4; O2SAT 95
[2025-04-13] MEDS: methylPREDNISolone sod succ 1,000 MG in sodium chloride 0.9% 250 ML 258 MG IV (11:15)
--- NOTE | 2025-04-13 11:24 | PC.NURSE ---
10:45 IV SITE EVALUATED. NO REDNESS OR SWELLING. FLUSHED WITH 10ML OF SALINE. IV PATENT.
--- NOTE | 2025-04-13 12:37 | PC.NURSE ---
12:35 TOLERATED PROCEDURE WELL. IV FLUSHED WITH 10ML OF SALINE. END CAP APPLIED AND NEW PROTECTIVE DRESSING APPLIED.
[2025-04-14 09:20] LABS: THYROID PEROXIDASE ANTIBODIES <1 IU/mL (<9)
[2025-04-14] MEDS: methylPREDNISolone sod succ 1,000 MG in sodium chloride 0.9% 250 ML 258 MG IV (11:35)
[2025-04-14 12:56] VITALS: BP 130/77; PULSE 77; RESP 16; TEMP 35.9; O2SAT 99
[2025-04-14 15:19] LABS: COMPLEMENT, TOTAL (CH50) >60 U/mL (31-60)
[2025-04-14 16:03] LABS: ANA SCREEN, IFA NEGATIVE (NEGATIVE)
--- NOTE | 2025-04-15 10:15 | MR_ITS ---
WS: [id number] MRI HEAD WITH CONTRAST TECHNIQUE: Sagittal T1, T2 axial, T2 axial FLAIR, axial susceptibility weighted imaging, axial diffusion weighted images, and coronal T2 images were obtained. Pre and post-T1 axial and post T1 coronal images. ADC and FSPGR images. CLINICAL INFORMATION: G43.101 - Migraine with aura, not intractable, with statu... COMPARISON: CT 04/09/2025 FINDINGS: No evidence of restricted diffusion to suggest acute ischemia. Chronic infarct in the RIGHT frontal lobe laterally with encephalomalacia and gliosis. Mild small vessel changes. Mild to moderate parenchymal volume loss. No hemosiderin. Paranasal sinuses and mastoid air cells are well aerated. No hemosiderin on the susceptibly weighted images. No abnormal gadolinium enhancement. Partially visualized LEFT parotid nodules described below. Recommend further evaluation with contrast-enhanced neck CT. MR/MR head wo/w con [id number] IMPRESSION: 1. No evidence of restricted diffusion to suggest acute ischemia. 2. Chronic infarct RIGHT frontal lobe laterally with encephalomalacia and glio sis. 3. No hemosiderin on the susceptibly weighted images. 4. No abnormal gadolinium enhancement. 5. Lobulated LEFT parotid nodule partially visualized with peripheral enhancem ent. This measures approximately 1.6 x 1.1 cm. Smaller surrounding nodules. Thi s could be further evaluated with contrast-enhanced CT neck 6. No other acute findings.
[2025-04-15] MEDS: gadobenate dimeglumine 20 mL vial IV (11:07)
[2025-04-15 14:04] LABS: Angiotensin Convert Enzy CSF 6 U/L (<=15)
[2025-04-16 00:06] LABS: VDRL on CSF NON-REACTIVE
[2025-04-16 00:14] LABS: Oligoclonal Bands IGG, CSF ABSENT (ABSENT)
[2025-04-16 15:33] LABS: DNA AB (DS) CRITHIDIA,IFA NEGATIVE (NEGATIVE)
[2025-04-16 18:15] LABS: Lyme Disease AB (IGG),IBL NO BANDS DETECTED; Lyme Disease AB (IGM), IBL NO BANDS DETECTED
[2025-04-18 13:48] LABS: IgG CSF 2.8 mg/dL (0.8-7.7); IgG Index , CSF 0.46 (<0.70); Immunoglobulin G 941 mg/dL (600-1540)
== END 2025-04-21 23:59 | disposition home or self-care (01) ==
LOC: RAD 04-16 → ONCMED 04-16 09:32
PROVIDERS: PCP Nurse Practitioner Family; Visit Provider Specialist
DX: Z53.9 Procedure and treatment not carried out, unspecified reason (principal); G43.101 Migraine with aura, not intractable, with status migrainosus; G93.89 Other specified disorders of brain
CPT/HCPCS: 62270; 70553; 80503; 82040; 82042; 82164; 82784; 82945; 83916; 84157; 85651; 86140; 86160; 86162; 86235; 86255; 86376; 86431; 86592; 86617; 87070; 87075; 87205; 87327; 89050; 96365; 99215; J2919; J7050

== ENCOUNTER → 2025-05-22 15:33 | Outpatient (BNVA) | payer MEDICARE, SELFPAY | PROVIDERS: PCP Nurse Practitioner Family; Visit Provider Specialist | DX: G43.101 Migraine with aura, not intractable, with status migrainosus (principal); M31.6 Other giant cell arteritis | CPT/HCPCS: 99215 ==

== ENCOUNTER → 2025-05-24 13:20 | Outpatient (BNVA) | payer MEDICARE, SELFPAY | PROVIDERS: PCP Nurse Practitioner Family; Visit Provider Emergency Medicine | DX: J02.9 Acute pharyngitis, unspecified (principal) | CPT/HCPCS: 87071; 87880 ==

== ENCOUNTER → 2025-06-10 11:02 | Outpatient (BNVA) | payer MEDICARE, SELFPAY | PROVIDERS: PCP Nurse Practitioner Family; Visit Provider Dermatology | DX: L50.8 Other urticaria (principal); L21.8 Other seborrheic dermatitis; D17.22 Benign lipomatous neoplasm of skin and subcutaneous tissue of left arm; L72.0 Epidermal cyst; L57.0 Actinic keratosis | CPT/HCPCS: 17000; 99204 ==

== ENCOUNTER → 2025-06-16 11:18 | Outpatient (BNVA) | payer MEDICARE, SELFPAY | PROVIDERS: PCP Family Medicine; Visit Provider Family Medicine | DX: Z13.6 Encounter for screening for cardiovascular disorders (principal) | CPT/HCPCS: 80053; 80061 ==

== ENCOUNTER → 2025-06-26 15:35 | Outpatient (BNVA) | payer MEDICARE, SELFPAY | PROVIDERS: PCP Family Medicine; Visit Provider Internal Medicine | DX: I48.91 Unspecified atrial fibrillation (principal); I48.92 Unspecified atrial flutter; Z79.01 Long term (current) use of anticoagulants; J44.9 Chronic obstructive pulmonary disease, unspecified; Z72.0 Tobacco use | CPT/HCPCS: 99214 ==

== ENCOUNTER 2025-06-30 12:49 | Oncology outpatient (recurring) (ONCR) | payer MEDICARE, SELFPAY ==
--- NOTE | 2025-06-30 13:00 | CT_ITS ---
WS: [id number] LDCT LUNG CANCER SCREENING TECHNIQUE: Noncontrast CT of the chest with coronal and sagittal reformatted images. CLINICAL INFORMATION: screening COMPARISON: None. DLP: 86.80 mGy.cm DIvol: Mean CTDIvol: 1.80 (mGy) All CT scans at [facility] use at least one of these dose optimization techniques: automated exposure control; mA and/or kV adjustment per patient size (includes targeted exams where dose is matched to clinical indication); or iterative reconstruction. FINDINGS: Subsegmental atelectasis in the lung bases. Calcified granuloma RIGHT lower lobe. Tiny noncalcified nodule RIGHT upper lobe. Small noncalcified LEFT upper lobe Aortic calcification. Normal caliber thoracic aorta. No mediastinal or hilar lymphadenopathy. No axillary lymphadenopathy. Adrenal glands are normal. Moderate thoracic kyphosis. CT/CT lung screening [id number] IMPRESSION: LUNG-RADS: 2-Benign Appearance or Behavior FOLLOW UP: 12 Month: Continue annual screening with LDCT
== END 2025-07-22 23:59 | disposition home or self-care (01) ==
PROVIDERS: PCP Family Medicine; Visit Provider Specialist
DX: Z12.2 Encounter for screening for malignant neoplasm of respiratory organs (principal); F17.219 Nicotine dependence, cigarettes, with unspecified nicotine-induced disorders; J98.11 Atelectasis; J84.10 Pulmonary fibrosis, unspecified; R91.8 Other nonspecific abnormal finding of lung field; I70.0 Atherosclerosis of aorta; M40.294 Other kyphosis, thoracic region
CPT/HCPCS: 71271

== ENCOUNTER → 2025-07-17 14:13 | Outpatient (BNVA) | payer MEDICARE, SELFPAY | PROVIDERS: PCP Family Medicine; Visit Provider Family Medicine | DX: R79.89 Other specified abnormal findings of blood chemistry (principal) | CPT/HCPCS: 80048 ==

== ENCOUNTER 2025-08-06 13:00 | Outpatient (CLI) | payer MEDICARE, SELFPAY ==
--- NOTE | 2025-08-06 13:00 | CT_ITS ---
WS: [id number] CT NECK WITH CONTRAST HISTORY: LEFT parotid nodule. TECHNIQUE: Contiguous 2 mm axial images are performed through the neck with intravenous contrast. Sagittal and coronal reformats are also submitted. All CT scans at [facility] [place] use at least one of these dose optimization techniques: automated exposure control; mA and/or kV adjustment per patient size (includes targeted exams where dose is matched to clinical indication); or iterative reconstruction. CONTRAST: CONTRAST: Omnipaque 350; 100 mL IV. DLP: 207.56 mGy.cm COMPARISON: MRI 04/15/2025 Solid peripherally enhancing superficial nodule noted in the LEFT parotid gland. Solid parotid gland mass measures 1.8 x 1.5 x 2.0 cm. 1Slightly nodular component extends to abut the posterior LEFT masseter muscle. There is no fat the masseter muscle from the parotid gland. No additional LEFT parotid space mass. The RIGHT parotid gland is normal size. There is a small enhancing nodule at the base of the parotid gland consistent with a lymph node. Nasopharynx, oropharynx, hypopharynx and larynx are unremarkable. No soft tissue masses or abnormal enhancement. Torus tubarius and fossa of Rosenmuller and parapharyngeal fat are normal. Small benign cervical chain lymph nodes. Normal reniform shape at the lymph nodes. No hyperenhancement. Normal thyroid gland. Normal submandibular glands. No osseous abnormalities. Mild atherosclerotic disease in the carotid bifurcations. Mild RIGHT ICA stenosis. Visualized portions of the skull base demonstrate no abnormalities. Orbits and globes are within normal limits. No soft tissue masses. Visualized paranasal sinuses and mastoid air cells are normal. Lung apices are clear. CT/CT neck w con* [id number] IMPRESSION: 1. Solid peripherally enhancing LEFT parotid mass in the superficial lobe liam ures 1.8 x 1.5 x 2.0 cm. By imaging it is difficult to distinguish benign from neoplastic parotid masses. Parotid gland mass is inseparable from the posterior masseter muscle. Recommend evaluation by ENT for evaluation. 2. No pathologically enlarged lymph nodes.
[2025-08-06] MEDS: iohexol 350 mg/mL 500 mL Btl (per mL) IV (13:21)
== END 2025-08-06 13:01 | disposition home or self-care (01) ==
PROVIDERS: PCP Family Medicine; Visit Provider Family Medicine
DX: K11.8 Other diseases of salivary glands (principal)
CPT/HCPCS: 70491